=== PATIENT | female | born 1950 | race Caucasian/White ===

== ENCOUNTER 2021-06-29 15:21 | Emergency (ER) | payer MEDICARE ==
--- NOTE | 2021-06-29 15:40 | EDM.PDOC ---
ED HPI GENERAL MEDICAL PROBLEM - General Chief Complaint: Respiratory Problem Stated Complaint: MEDICAL Time Seen by Provider: 06/29/21 15:30 Source of Information: Reports: Patient History Limitations: Reports: No Limitations - History of Present Illness INITIAL COMMENTS - FREE TEXT/NARRATIVE: 70-year-old female who is undergoing monoclonal antibody therapy for Covid as an outpatient, feels weak, has no appetite, has generalized malaise and insisted on being seen in the emergency room after her therapy. Her vitals are stable, O2 saturations are 92 to 94%, and she is afebrile. 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 Denies: Fever, Chills HEENT: Reports: Throat Pain Respiratory: Reports: Shortness of Breath, Cough GI/Abdominal: Reports: Decreased Appetite. Denies: Nausea, Vomiting Musculoskeletal: Reports: Other (Generalized muscle aches) Neurological: Reports: Headache, Weakness Psychiatric: Reports: No Symptoms ED EXAM, GENERAL - Physical Exam Exam: See Below Exam Limited By: No Limitations General Appearance: Alert, No Apparent Distress Neck: Normal Inspection Respiratory/Chest: No Respiratory Distress, Rhonchi (Few scattered rhonchi and expiratory wheezes bilaterally), Wheezing Cardiovascular: Regular Rate, Rhythm. No: Tachycardia Extremities: Normal Inspection. No: Pedal Edema Neurological: Alert, Oriented Psychiatric: Normal Affect, Normal Mood Skin Exam: Warm, Dry Course - Vital Signs Last Recorded V/S: Last Vital Signs Temp 98.5 F 06/29/21 15:22 Pulse 99 06/29/21 15:22 Resp 18 06/29/21 15:22 BP 135/93 H 06/29/21 15:22 Pulse Ox 92 L 06/29/21 15:22 - Re-Assessments/Exams Free Text/Narrative Re-Assessment/Exam: 06/29/21 17:06 Patient was reassured that no further treatment is needed at this time, she is to rest, get fluids, increase activity as tolerated and return if worsening. Departure - Departure Time of Disposition: 15:49 Disposition: Home, Self-Care 01 Clinical Impression: COVID-19 - Discharge Information Instructions: COVID-19 Referrals: PCP,None [Primary Care Provider] - Forms: ED Department Discharge Care Plan Goals: Rest, fluids, and recheck if you feel you are not getting enough oxygen. There is no treatment for lack of energy, fatigue, poor diet or lack of taste. Sepsis Event Note (ED) - Evaluation Sepsis Screening Result: No Definite Risk - Focused Exam Vital Signs: Vital Signs Temp Pulse Resp BP Pulse Ox 06/29/21 15:22 98.5 F 99 18 135/93 H 92 L
== END 2021-06-29 15:49 | disposition home or self-care (01) ==
LOC: JP.ED 15:21
DX: U07.1 COVID-19 (principal); Z88.8 Allergy status to other drugs, medicaments and biological substances
CPT/HCPCS: 99283

== ENCOUNTER 2021-07-01 08:30 | Inpatient (IN) | payer MEDICARE ==
[2021-07-01] MEDS ORDERED: Sodium Chloride 0.9% 10 ML Syringe FLUSH PRN (08:44)
--- NOTE | 2021-07-01 09:20 | CR ---
CHEST: Portable 07/01/2021 at 9:00 AM CLINICAL HISTORY:Hypoxia COMPARISON:CT 02/26/2021 FINDINGS: Patient has patchy bilateral pneumonic infiltrates. Heart and pulmonary vascularity are normal. There are no effusions There are atherosclerotic changes in the aorta.. Impression: Patchy bilateral pneumonic infiltrates
[2021-07-01] MEDS ORDERED: Dexamethasone 4 MG/ML SDV IVPUSH ONE (09:29)
--- NOTE | 2021-07-01 09:29 | EDM.PDOC ---
ED HPI GENERAL MEDICAL PROBLEM - General Chief Complaint: Respiratory Problem Stated Complaint: MEDICAL VIA [facility] Time Seen by Provider: 07/01/21 09:15 Source of Information: Reports: Patient, Old Records, RN History Limitations: Reports: No Limitations - History of Present Illness INITIAL COMMENTS - FREE TEXT/NARRATIVE: 70 yo known Covid + female got her BAM treatments 2 days ago. She was mildly SOB then, worse now. Has not been vaccinated. 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) (none today) - Related Data Allergies Allergy/AdvReac Type Severity Reaction Status Date / Time hydrochlorothiazide Allergy Muscle Verified 07/01/21 08:41 Aches rosuvastatin Allergy Muscle Verified 07/01/21 08:41 Aches simvastatin Allergy Muscle Verified 07/01/21 08:41 Aches Home Meds: Home Meds Amoxicillin 1 tab PO ASDIRECTED 07/01/21 [History] pindoloL [Pindolol] 10 mg PO BID 07/01/21 [History] Past Medical History Cardiovascular History: Reports: Hypertension Gastrointestinal History: Reports: None 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: Psychiatric History: Reports: Anxiety, Depression - Infectious Disease History Infectious Disease History: Reports: Chicken Pox, Measles, Mumps - Past Surgical History Head Surgeries/Procedures: Reports: None Cardiovascular Surgical History: Reports: None GI Surgical History: Reports: Cholecystectomy, Other (See Below) Other GI Surgeries/Procedures: gastric sleeve Social & Family History - Tobacco Use Tobacco Use Status *Q: Never Tobacco User Second Hand Smoke Exposure: No - Caffeine Use Caffeine Use: Reports: Coffee, Soda - Recreational Drug Use Recreational Drug Use: No ED ROS GENERAL - Review of Systems Review Of Systems: See Below Constitutional: Reports: Malaise HEENT: Reports: No Symptoms Respiratory: Reports: Shortness of Breath, Cough Cardiovascular: Reports: No Symptoms GI/Abdominal: Reports: No Symptoms : Reports: No Symptoms Musculoskeletal: Reports: No Symptoms Skin: Reports: No Symptoms Neurological: Reports: No Symptoms ED EXAM, GENERAL - Physical Exam Exam: See Below Exam Limited By: No Limitations General Appearance: Alert, WD/WN, No Apparent Distress Eye Exam: Bilateral Eye: EOMI, Normal Inspection, PERRL Ears: Normal External Exam, Normal Canal, Hearing Grossly Normal, Normal TMs Ear Exam: Bilateral Ear: Auricle Normal, Canal Normal, TM normal Nose: Normal Inspection, No Blood Throat/Mouth: Normal Inspection, Normal Lips, Normal Oropharynx, Normal Voice, No Airway Compromise Head: Atraumatic, Normocephalic Neck: Normal Inspection Respiratory/Chest: No Accessory Muscle Use, Crackles, Other (mild tachypnea) Cardiovascular: Regular Rate, Rhythm, No Edema GI/Abdominal: Normal Bowel Sounds, Soft, Non-Tender, No Distention Back Exam: Normal Inspection. No: CVA Tenderness (R), CVA Tenderness (L) Extremities: Normal Inspection, Normal Range of Motion, Non-Tender, No Pedal Edema Neurological: Alert, Oriented, CN II-XII Intact, Normal Cognition, No Motor/Sensory Deficits Psychiatric: Normal Affect, Normal Mood Skin Exam: Warm, Dry, Intact, Normal Color, No Rash Course - Vital Signs Last Recorded V/S: Last Vital Signs Temp 36.3 C 07/01/21 08:37 Pulse 81 07/01/21 08:37 Resp 18 07/01/21 08:37 BP 152/69 H 07/01/21 08:37 Pulse Ox 93 L 07/01/21 08:37 - Orders/Labs/Meds Orders: Active Orders 24 hr Category Date Time Status Oxygen Therapy Adult [Oxygen Therapy, ED] [RC] Care 07/01/21 09:30 Active ASDIRECTED UA W/MICROSCOPIC [URIN] Stat Lab 07/01/21 08:45 Ordered Sodium Chloride 0.9% [Saline Flush] Med 07/01/21 08:44 Active 10 ml FLUSH ASDIRECTED PRN Saline Lock Insert [OM.PC] Routine Oth 07/01/21 08:44 Ordered Medication Orders Sodium Chloride (Sodium Chloride 0.9% 10 Ml Syringe) 10 ml FLUSH ASDIRECTED PRN PRN Reason: Keep Vein Open Last Admin: 07/01/21 10:04 Dose: 10 ml Documented by: [id number] Labs: Laboratory Tests 07/01/21 07/01/21 07/01/21 Range/Units 09:01 09:01 09:01 WBC 6.6 (4.5-11.0) K/uL RBC 4.64 (3.30-5.50) M/uL Hgb 12.9 (12.0-15.0) g/dL Hct 39.5 (36.0-48.0) % MCV 85 (80-98) fL MCH 28 (27-31) pg MCHC 33 (32-36) % Plt Count 393 (150-400) K/uL D-Dimer, Quantitative 983.77 H (0.0-500.0) ng/mL Sodium 143 (140-148) mmol/L Potassium 3.7 (3.6-5.2) mmol/L Chloride 105 (100-108) mmol/L Carbon Dioxide 27 (21-32) mmol/L Anion Gap 11.0 (5.0-14.0) mmol/L BUN 17 (7-18) mg/dL Creatinine 0.9 (0.6-1.0) mg/dL Est Cr Clr Drug Dosing 51.66 mL/min Estimated GFR (MDRD) > 60 (>60) Glucose 125 H (74-106) mg/dL Calcium 8.6 (8.5-10.1) mg/dL Total Bilirubin (0.2-1.0) mg/dL Direct Bilirubin (0.0-0.2) mg/dL Indirect Bilirubin AST (15-37) U/L ALT (12-78) U/L Alkaline Phosphatase (46-116) U/L C-Reactive Protein (0.0-0.3) mg/dL Total Protein (6.4-8.2) g/dL Albumin (3.4-5.0) g/dL Globulin (2.3-3.5) g/dL Albumin/Globulin Ratio (1.2-2.2) 07/01/21 07/01/21 Range/Units 09:30 11:41 WBC (4.5-11.0) K/uL RBC (3.30-5.50) M/uL Hgb (12.0-15.0) g/dL Hct (36.0-48.0) % MCV (80-98) fL MCH (27-31) pg MCHC (32-36) % Plt Count (150-400) K/uL D-Dimer, Quantitative (0.0-500.0) ng/mL Sodium (140-148) mmol/L Potassium (3.6-5.2) mmol/L Chloride (100-108) mmol/L Carbon Dioxide (21-32) mmol/L Anion Gap (5.0-14.0) mmol/L BUN (7-18) mg/dL Creatinine (0.6-1.0) mg/dL Est Cr Clr Drug Dosing mL/min Estimated GFR (MDRD) (>60) Glucose (74-106) mg/dL Calcium (8.5-10.1) mg/dL Total Bilirubin 0.4 (0.2-1.0) mg/dL Direct Bilirubin 0.12 (0.0-0.2) mg/dL Indirect Bilirubin 0.28 AST 112 H (15-37) U/L ALT 72 (12-78) U/L Alkaline Phosphatase 98 (46-116) U/L C-Reactive Protein 3.46 H (0.0-0.3) mg/dL Total Protein 7.0 (6.4-8.2) g/dL Albumin 2.8 L (3.4-5.0) g/dL Globulin 4.2 H (2.3-3.5) g/dL Albumin/Globulin Ratio 0.7 L (1.2-2.2) Meds: Medications Generic Name Dose Route Start Last Admin Trade Name Frejames PRN Reason Stop Dose Admin Sodium Chloride 10 ml 07/01/21 08:44 07/01/21 10:04 Sodium Chloride 0.9% 10 Ml Syringe FLUSH 10 ml ASDIRECTED PRN Administration Keep Vein Open Discontinued Medications Generic Name Dose Route Start Last Admin Trade Name Mikhail PRN Reason Stop Dose Admin Dexamethasone 6 mg 07/01/21 09:29 07/01/21 10:03 Dexamethasone 4 Mg/Ml Sdv IVPUSH 07/01/21 09:30 6 mg ONETIME ONE Administration Remdesivir 200 mg/ Sodium 250 mls @ 250 mls/hr 07/01/21 09:30 07/01/21 10:07 Chloride IV 07/01/21 10:29 250 mls/hr ONETIME ONE Administration - Radiology Interpretation Free Text/Narrative:: CXR-bilat subtle infiltrates Departure - Departure Time of Disposition: 12:10 Disposition: Admitted As Inpatient 68 Condition: Fair Clinical Impression: COVID-19, Hypoxia - Discharge Information *PRESCRIPTION DRUG MONITORING PROGRAM REVIEWED*: Not Applicable *COPY OF PRESCRIPTION DRUG MONITORING REPORT IN PATIENT GARRETT: Not Applicable Referrals: PCP,None [Primary Care Provider] - Forms: ED Department Discharge Sepsis Event Note (ED) - Evaluation Sepsis Screening Result: No Definite Risk - Focused Exam Vital Signs: Vital Signs Temp Pulse Resp BP Pulse Ox 07/01/21 08:37 36.3 C 81 18 152/69 H 93 L - My Orders Last 24 Hours: My Active Orders 07/01/21 08:44 Sodium Chloride 0.9% [Saline Flush] 10 ml FLUSH ASDIRECTED PRN Saline Lock Insert [OM.PC] Routine 07/01/21 08:45 UA W/MICROSCOPIC [URIN] Stat 07/01/21 09:30 Oxygen Therapy Adult [Oxygen Therapy, ED] [] ASDIRECTED - Assessment/Plan Last 24 Hours: My Active Orders 07/01/21 08:44 Sodium Chloride 0.9% [Saline Flush] 10 ml FLUSH ASDIRECTED PRN Saline Lock Insert [OM.PC] Routine 07/01/21 08:45 UA W/MICROSCOPIC [URIN] Stat 07/01/21 09:30 Oxygen Therapy Adult [Oxygen Therapy, ED] [RC] ASDIRECTED
[2021-07-01] MEDS ORDERED: REMDESIVIR 200 MG in Sodium Chloride 0.9% 250 ML IV ONE (09:30)
--- NOTE | 2021-07-01 12:58 | PCM.HP.2 ---
H&P History of Present Illness - General Date of Service: 07/01/21 Admit Problem/Dx: Admission Diagnosis/Problem Admission Diagnosis/Problem Pneumonia Source of Information: Patient, Provider History Limitations: Reports: No Limitations - History of Present Illness Initial Comments - Free Text/Narative: CC: I'm so sick HPI: Dimple presents to the emergency room today with about 9 days of worsening cough, shortness of breath, weakness, muscle aches, headaches and poor appetite. She thinks her symptoms started about June 22. She was seen in the clinic and tested positive for Covid so monoclonal antibody therapy was ordered and she did complete this on June 29. She did not feel well at the time of the infusion and was seen in the emergency room. She was not hypoxic so she was discharged home. Since that time she has had progression of her symptoms. She did not feel any better after the monoclonal antibodies. She continues to cough and feels short of breath with activity. She has had very little to eat though fluid intake has been acceptable. No complaints of sore throat or sinus congestion. Continues to have diffuse myalgias, weakness and fatigue. She has not previously been vaccinated. Work-up in the emergency room suggested Covid pneumonia with acute respiratory failure and hypoxia. She has mild elevation of D-dimer and CRP. Chest x-ray shows only mild lower lung infiltrates. Currently requiring 3 to 4 L of oxygen. She did receive dexamethasone and remdesivir in the emergency room. She will be admitted for further management. 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: Psychiatric History: Reports: Anxiety, Depression - Infectious Disease History Infectious Disease History: Reports: Chicken Pox, Measles, Mumps - Past Surgical History Head Surgeries/Procedures: Reports: None Cardiovascular Surgical History: Reports: None GI Surgical History: Reports: Cholecystectomy, Other (See Below) Other GI Surgeries/Procedures: gastric sleeve Social & Family History - Family History Cardiac: Denies: CAD - Tobacco Use Tobacco Use Status *Q: Never Tobacco User Second Hand Smoke Exposure: No - Caffeine Use Caffeine Use: Reports: Coffee, Soda - Alcohol Use Alcohol Use History: No Alcohol Use in Last Twelve Months: No - Recreational Drug Use Recreational Drug Use: No H&P Review of Systems - Review of Systems: Review Of Systems: See Below Free Text/Narrative: A complete 12 point review of systems was obtained. Pertinent positives and negatives are noted in the history of present illness. All other systems were reviewed and were negative except as noted. Exam - Exam Exam: See Below - Vital Signs Vital Signs: Last Vital Signs Temp 36.3 C 07/01/21 08:37 Pulse 81 07/01/21 08:37 Resp 18 07/01/21 08:37 BP 152/69 H 07/01/21 08:37 Pulse Ox 93 L 07/01/21 08:37 Weight: 83.915 kg - Exam Quality Assessment: Supplemental Oxygen General: Alert, Oriented, Cooperative. No: Mild Distress HEENT: Conjunctiva Clear. No: Mucosa Moist & Chicken, Scleral Icterus Neck: Supple, Trachea Midline. No: Lymphadenopathy Lungs: Normal Respiratory Effort, Crackles (few both bases). No: Wheezing Cardiovascular: Regular Rate, Regular Rhythm. No: Systolic Murmur GI/Abdominal Exam: Normal Bowel Sounds, Soft, Non-Tender, No Distention Back Exam: Normal Inspection, Full Range of Motion Extremities: No Pedal Edema. No: Increased Warmth Peripheral Pulses: 2+: Dorsalis Pedis (L), Dorsalis Pedis (R) Skin: Warm, Dry Neuro Extensive - Mental Status: Alert, Oriented x3, Nl Response to Commands Neuro Extensive - Motor, Sensory, Reflexes: No: Dysarthria, Abnormal Motor, Tremor Psychiatric: Alert, Normal Affect - Patient Data Lab Results Last 24 hrs: Laboratory Results - last 24 hr 07/01/21 07/01/21 07/01/21 Range/Units 09:01 09:01 09:01 WBC 6.6 (4.5-11.0) K/uL RBC 4.64 (3.30-5.50) M/uL Hgb 12.9 (12.0-15.0) g/dL Hct 39.5 (36.0-48.0) % MCV 85 (80-98) fL MCH 28 (27-31) pg MCHC 33 (32-36) % Plt Count 393 (150-400) K/uL D-Dimer, Quantitative 983.77 H (0.0-500.0) ng/mL Sodium 143 (140-148) mmol/L Potassium 3.7 (3.6-5.2) mmol/L Chloride 105 (100-108) mmol/L Carbon Dioxide 27 (21-32) mmol/L Anion Gap 11.0 (5.0-14.0) mmol/L BUN 17 (7-18) mg/dL Creatinine 0.9 (0.6-1.0) mg/dL Est Cr Clr Drug Dosing 51.66 mL/min Estimated GFR (MDRD) > 60 (>60) Glucose 125 H (74-106) mg/dL Calcium 8.6 (8.5-10.1) mg/dL Total Bilirubin (0.2-1.0) mg/dL Direct Bilirubin (0.0-0.2) mg/dL Indirect Bilirubin AST (15-37) U/L ALT (12-78) U/L Alkaline Phosphatase (46-116) U/L C-Reactive Protein (0.0-0.3) mg/dL Total Protein (6.4-8.2) g/dL Albumin (3.4-5.0) g/dL Globulin (2.3-3.5) g/dL Albumin/Globulin Ratio (1.2-2.2) 07/01/21 07/01/21 Range/Units 09:30 11:41 WBC (4.5-11.0) K/uL RBC (3.30-5.50) M/uL Hgb (12.0-15.0) g/dL Hct (36.0-48.0) % MCV (80-98) fL MCH (27-31) pg MCHC (32-36) % Plt Count (150-400) K/uL D-Dimer, Quantitative (0.0-500.0) ng/mL Sodium (140-148) mmol/L Potassium (3.6-5.2) mmol/L Chloride (100-108) mmol/L Carbon Dioxide (21-32) mmol/L Anion Gap (5.0-14.0) mmol/L BUN (7-18) mg/dL Creatinine (0.6-1.0) mg/dL Est Cr Clr Drug Dosing mL/min Estimated GFR (MDRD) (>60) Glucose (74-106) mg/dL Calcium (8.5-10.1) mg/dL Total Bilirubin 0.4 (0.2-1.0) mg/dL Direct Bilirubin 0.12 (0.0-0.2) mg/dL Indirect Bilirubin 0.28 AST 112 H (15-37) U/L ALT 72 (12-78) U/L Alkaline Phosphatase 98 (46-116) U/L C-Reactive Protein 3.46 H (0.0-0.3) mg/dL Total Protein 7.0 (6.4-8.2) g/dL Albumin 2.8 L (3.4-5.0) g/dL Globulin 4.2 H (2.3-3.5) g/dL Albumin/Globulin Ratio 0.7 L (1.2-2.2) Result Diagrams: 07/01/21 09:01 07/01/21 09:01 Imaging Impressions Last 24 hrs: CXR-image personally reviewed-there are mild bilateral interstitial changes in the lower portion of the lungs. No obvious mass or effusion. No large infiltrate. Heart size normal. Sepsis Event Note - Evaluation Sepsis Screening Result: No Definite Risk - Focused Exam Vital Signs: Vital Signs Temp Pulse Resp BP Pulse Ox 07/01/21 08:37 36.3 C 81 18 152/69 H 93 L *Q Meaningful Use (ADM) - VTE Risk Assess *Q Each Risk Factor Represents 1 Point: Obesity ( BMI > 25 kg/m2), Serious lung disease including pneumonia Total Score 1 Point Risk Factors: 2 Each Risk Factor Represents 2 Points: Age 60 - 74 Years Total Score 2 Point Risk Factors: 2 Each Risk Factor Represents 3 Points: None Total Score 3 Point Risk Factors: 0 Each Risk Factor Represents 5 Points: None Total Score 5 Point Risk Factors: 0 Venous Thromboembolism Risk Factor Score *Q: 4 - Problem List (1) Pneumonia due to coronavirus disease 2018 SNOMED Code(s): 302881300093217823 ICD Code: U07.1 - COVID-19; J12.82 - PNEUMONIA DUE TO CORONAVIRUS DISEASE 2 019 Status: Acute Current Visit: Yes (2) Acute respiratory failure due to COVID-19 SNOMED Code(s): 546455198 ICD Code: U07.1 - COVID-19; J96.00 - ACUTE RESPIRATORY FAILURE, UNSP W HYPOXIA OR HYPERCAPNIA Status: Acute Current Visit: Yes (3) Obesity (BMI 30.0-34.9) SNOMED Code(s): 331677760283645 ICD Code: E66.9 - OBESITY, UNSPECIFIED Status: Chronic Current Visit: Yes Problem List Initiated/Reviewed/Updated: Yes Orders Last 24hrs: Active Orders 24 hr Category Date Time Status Patient Status Manage Transfer [TRANSFER] Routine ADT 07/01/21 12:51 Ordered Oxygen Therapy Adult [Oxygen Therapy, ED] [RC] Care 07/01/21 09:30 Active ASDIRECTED UA W/MICROSCOPIC [URIN] Stat Lab 07/01/21 08:45 Ordered Sodium Chloride 0.9% [Saline Flush] Med 07/01/21 08:44 Active 10 ml FLUSH ASDIRECTED PRN Saline Lock Insert [OM.PC] Routine Oth 07/01/21 08:44 Ordered Resuscitation Status Routine Resus Stat 07/01/21 12:51 Ordered Medication Orders Sodium Chloride (Sodium Chloride 0.9% 10 Ml Syringe) 10 ml FLUSH ASDIRECTED PRN PRN Reason: Keep Vein Open Last Admin: 07/01/21 10:04 Dose: 10 ml Documented by: WILLI Assessment/Plan Comment:: ASSESSMENT AND PLAN - COVID-19 pneumonia-complicated by acute respiratory failure with hypoxia. Symptomatic on June 22. Previously unvaccinated. Mild elevation of CRP and D-dimer with only minimal changes on chest x-ray. Currently hypoxic. Quite miserable with her symptoms. -Dexamethasone 6 mg x 10 days (day 1) -Remdesivir x5 days -Enoxaparin every 24 hours -Supplement oxygen, wean as able -Symptomatic management of pain and cough -Isolation precautions Maintenance issues - -DVT prophylaxis-enoxaparin -GI prophylaxis-not indicated -Nutrition-regular -Goss catheter-not indicated CODE STATUS -CPR okay, no intubation Admission justification -this patient will be admitted for inpatient services and is medically appropriate meeting medical necessity for inpatient admission as outlined in my documentation. I reasonably expect the patient will require inpatient services that span a period time over 2 midnights. I reasonably expect this patient to be discharged or transferred within 96 hours after admission to the [facility]. Disposition -I anticipate discharge home after the hospital stay Primary care physician -Dr Elvira Mcclain M.D. - Mortality Measure Prognosis:: Good
[2021-07-01] MEDS ORDERED: Ondansetron 4 MG Tab.DIS PO PRN (13:59)
[2021-07-01] MEDS ORDERED: Ondansetron 4 MG/2 ML SDV IV PRN (13:59)
[2021-07-01] MEDS ORDERED: LORazepam 2 MG/ML SDV IVPUSH PRN (13:59)
[2021-07-01] MEDS ORDERED: Magnesium Hydroxide 400 MG/5 ML Susp 30 ML Cup PO PRN (13:59)
[2021-07-01] MEDS: Acetaminophen 325 MG Tab PO PRN ×2 (15:18→21:20)
[2021-07-01] MEDS: LORazepam 0.5 MG Tab PO PRN ×2 (15:19→20:59)
[2021-07-01] MEDS: Enoxaparin 40 MG/0.4 ML Syringe SUBCUT SCH (15:41)
[2021-07-01] MEDS: Benzonatate 100 MG Cap PO PRN (20:59)
[2021-07-01] MEDS: Melatonin 3 MG Tab PO PRN (20:59)
[2021-07-01] MEDS: guaiFENesin/Dextromethorphan 100-10 MG/5 ML Soln 10 ML Cup PO PRN (20:59)
[2021-07-02] MEDS: Benzonatate 100 MG Cap PO PRN ×2 (04:23→12:53)
[2021-07-02] MEDS: LORazepam 0.5 MG Tab PO PRN ×4 (04:23→20:00)
[2021-07-02] MEDS: guaiFENesin/Dextromethorphan 100-10 MG/5 ML Soln 10 ML Cup PO PRN ×2 (04:23→08:47)
[2021-07-02] MEDS ORDERED: Sodium Chloride 0.65% Nasal Spray 45 ML Bottle NAS PRN (07:21)
[2021-07-02] MEDS: REMDESIVIR 100 MG in Sodium Chloride 0.9% 100 ML IV SCH (08:46)
[2021-07-02] MEDS: Dexamethasone 4 MG/ML SDV IVPUSH SCH (08:50)
[2021-07-02] MEDS: Acetaminophen 325 MG Tab PO PRN ×2 (09:06→20:00)
[2021-07-02] MEDS: Enoxaparin 40 MG/0.4 ML Syringe SUBCUT SCH (15:24)
--- NOTE | 2021-07-02 15:27 | PCM.PN ---
- General Info Date of Service: 07/02/21 Subjective Update: No acute events overnight. Requiring slightly more oxygen today at 6 to 7 L. Clinically feeling better. Appetite and energy are better but still not very good compared to baseline. No fevers. No nausea or diarrhea. Aches and pains have improved. Vital signs otherwise stable. - Review of Systems General: Reports: Weakness, Fatigue Pulmonary: Reports: Shortness of Breath - Patient Data Vitals - Most Recent: Last Vital Signs Temp 35.9 C L 07/02/21 15:21 Pulse 96 07/02/21 15: Resp 22 H 07/02/21 15: BP 168/71 H 07/02/21 15:21 Pulse Ox 90 L 07/02/21 15:21 Weight - Most Recent: 85.729 kg I&O - Last 24 Hours: Intake & Output 07/02/21 07/02/21 07/02/21 06:59 14:59 22:59 Output Total 600 300 Balance -600 -300 Lab Results Last 24 Hours: Laboratory Results - last 24 hr 07/01/21 07/02/21 Range/Units 08:45 05:18 Sodium 141 (140-148) mmol/L Potassium 3.7 (3.6-5.2) mmol/L Chloride 105 (100-108) mmol/L Carbon Dioxide 23 (21-32) mmol/L Anion Gap 13.4 (5.0-14.0) mmol/L BUN 19 H (7-18) mg/dL Creatinine 0.8 (0.6-1.0) mg/dL Est Cr Clr Drug Dosing 58.12 mL/min Estimated GFR (MDRD) > 60 (>60) Glucose 154 H (74-106) mg/dL Calcium 8.6 (8.5-10.1) mg/dL Total Bilirubin 0.3 (0.2-1.0) mg/dL AST 68 H (15-37) U/L ALT 59 (12-78) U/L Alkaline Phosphatase 89 (46-116) U/L Total Protein 6.4 (6.4-8.2) g/dL Albumin 2.6 L (3.4-5.0) g/dL Globulin 3.8 H (2.3-3.5) g/dL Albumin/Globulin Ratio 0.7 L (1.2-2.2) Urine Color Yellow (YELLOW) Urine Appearance Slightly cloudy A (CLEAR) Urine pH 5.5 (5.0-8.0) Ur Specific [place] >= 1.030 (1.008-1.030) Urine Protein >=300 H (NEGATIVE) mg/dL Urine Glucose (UA) Negative (NEGATIVE) mg/dL Urine Ketones >=160 H (NEGATIVE) mg/dL Urine Occult Blood Trace-intact H (NEGATIVE) Urine Nitrite Negative (NEGATIVE) Urine Bilirubin Negative (NEGATIVE) Urine Urobilinogen 0.2 (0.2-1.0) EU/dL Ur Leukocyte Esterase Negative (NEGATIVE) Urine RBC 0-5 (0-5) Urine WBC 0-5 (0-5) Ur Epithelial Cells Rare Amorphous Sediment Not seen Urine Bacteria Few Urine Mucus Rare Med Orders - Current: Current Medications Acetaminophen (Acetaminophen 325 Mg Tab) 650 mg PO Q4H PRN PRN Reason: Pain (Mild 1-3)/fever Last Admin: 07/02/21 09:06 Dose: 650 mg Documented by: Benzonatate (Benzonatate 100 Mg Cap) 100 mg PO TID PRN PRN Reason: Cough Last Admin: 07/02/21 12:53 Dose: 100 mg Documented by: Dexamethasone (Dexamethasone 4 Mg/Ml Sdv) 6 mg IVPUSH Q24H [facility] Stop: 07/10/21 09:01 Last Admin: 07/02/21 08:50 Dose: 6 mg Documented by: Enoxaparin Sodium (Enoxaparin 40 Mg/0.4 Ml Syringe) 40 mg SUBCUT Q24H [facility] Last Admin: 07/02/21 15:24 Dose: 40 mg Documented by: Guaifenesin/Dextromethorphan (Guaifenesin/Dextromethorphan 100-10 Mg/5 Ml Soln 10 Ml Cup) 10 ml PO Q4H PRN PRN Reason: Cough Last Admin: 07/02/21 08:47 Dose: 10 ml Documented by: Remdesivir 100 mg/ Sodium (Chloride) 100 mls @ 100 mls/hr IV Q24H [facility] Stop: 07/05/21 09:59 Last Admin: 07/02/21 08:46 Dose: 100 mls/hr Documented by: Lorazepam (Lorazepam 2 Mg/Ml Sdv) 0.5 mg IVPUSH Q4H PRN PRN Reason: Nausea/Vomiting Lorazepam (Lorazepam 0.5 Mg Tab) 0.5 mg PO Q4H PRN PRN Reason: Anxiety/sleep Last Admin: 07/02/21 12:53 Dose: 0.5 mg Documented by: Magnesium Hydroxide (Magnesium Hydroxide 400 Mg/5 Ml Susp 30 Ml Cup) 30 ml PO Q12H PRN PRN Reason: Constipation Melatonin (Melatonin 3 Mg Tab) 9 mg PO BEDTIME PRN PRN Reason: Sleep Last Admin: 07/01/21 20:59 Dose: 9 mg Documented by: Ondansetron HCl (Ondansetron 4 Mg/2 Ml Sdv) 4 mg IV Q6H PRN PRN Reason: Nausea/Vomiting Ondansetron HCl (Ondansetron 4 Mg Tab.Dis) 4 mg PO Q6H PRN PRN Reason: Nausea able to take PO Senna/Docusate Sodium (Docusate Sodium/Sennosides 50-8.6 Mg Tab) 1 tab PO BID PRN PRN Reason: Constipation Sodium Chloride (Sodium Chloride 0.9% 10 Ml Syringe) 10 ml FLUSH ASDIRECTED PRN PRN Reason: Keep Vein Open Last Admin: 07/01/21 10:04 Dose: 10 ml Documented by: Sodium Chloride (Sodium Chloride 0.65% Nasal [place] 45 Ml Bottle) 1 ml STACEY Q2H PRN PRN Reason: Dryness Last Admin: 07/02/21 12:52 Dose: 2 spr Documented by: Discontinued Medications Dexamethasone (Dexamethasone 4 Mg/Ml Sdv) 6 mg IVPUSH ONETIME ONE Stop: 07/01/21 09:30 Last Admin: 07/01/21 10:03 Dose: 6 mg Documented by: Remdesivir 200 mg/ Sodium (Chloride) 250 mls @ 250 mls/hr IV ONETIME ONE Stop: 07/01/21 10:29 Last Admin: 07/01/21 10:07 Dose: 250 mls/hr Documented by: - Exam Quality Assessment: Supplemental Oxygen General: Alert, Oriented, Cooperative, No Acute Distress Lungs: Clear to Auscultation, Normal Respiratory Effort Cardiovascular: Regular Rate, Regular Rhythm GI/Abdominal Exam: Soft, No Distention Extremities: No Pedal Edema. No: Increased Warmth Psy/Mental Status: Alert, Normal Affect - Patient Data Lab Results Last 24 hrs: Laboratory Results - last 24 hr 07/01/21 07/02/21 Range/Units 08:45 05:18 Sodium 141 (140-148) mmol/L Potassium 3.7 (3.6-5.2) mmol/L Chloride 105 (100-108) mmol/L Carbon Dioxide 23 (21-32) mmol/L Anion Gap 13.4 (5.0-14.0) mmol/L BUN 19 H (7-18) mg/dL Creatinine 0.8 (0.6-1.0) mg/dL Est Cr Clr Drug Dosing 58.12 mL/min Estimated GFR (MDRD) > 60 (>60) Glucose 154 H (74-106) mg/dL Calcium 8.6 (8.5-10.1) mg/dL Total Bilirubin 0.3 (0.2-1.0) mg/dL AST 68 H (15-37) U/L ALT 59 (12-78) U/L Alkaline Phosphatase 89 (46-116) U/L Total Protein 6.4 (6.4-8.2) g/dL Albumin 2.6 L (3.4-5.0) g/dL Globulin 3.8 H (2.3-3.5) g/dL Albumin/Globulin Ratio 0.7 L (1.2-2.2) Urine Color Yellow (YELLOW) Urine Appearance Slightly cloudy A (CLEAR) Urine pH 5.5 (5.0-8.0) Ur Specific [place] >= 1.030 (1.008-1.030) Urine Protein >=300 H (NEGATIVE) mg/dL Urine Glucose (UA) Negative (NEGATIVE) mg/dL Urine Ketones >=160 H (NEGATIVE) mg/dL Urine Occult Blood Trace-intact H (NEGATIVE) Urine Nitrite Negative (NEGATIVE) Urine Bilirubin Negative (NEGATIVE) Urine Urobilinogen 0.2 (0.2-1.0) EU/dL Ur Leukocyte Esterase Negative (NEGATIVE) Urine RBC 0-5 (0-5) Urine WBC 0-5 (0-5) Ur Epithelial Cells Rare Amorphous Sediment Not seen Urine Bacteria Few Urine Mucus Rare Result Diagrams: 07/01/21 09:01 07/02/21 05:18 Sepsis Event Note - Evaluation Sepsis Screening Result: Sepsis Risk - Focused Exam Vital Signs: Vital Signs Temp Temp Pulse Resp BP Pulse Ox 07/02/21 15:21 35.9 C L 96 22 H 168/71 H 90 L 07/02/21 11:25 36.1 C 90 18 146/70 H 92 L 07/02/21 08:30 90 L 07/02/21 08:08 36.1 C 94 20 151/73 H 91 L 07/02/21 07:17 35.5 C L 96 20 139/67 88 L 07/02/21 04:34 98 24 H 92 L - Problem List & Annotations (1) Pneumonia due to coronavirus disease 2018 SNOMED Code(s): 247394649462695167 Code(s): U07.1 - COVID-19; J12.82 - PNEUMONIA DUE TO CORONAVIRUS DISEASE 2018 Status: Acute Current Visit: Yes (2) Acute respiratory failure due to COVID-19 SNOMED Code(s): 982337347 Code(s): U07.1 - COVID-19; J96.00 - ACUTE RESPIRATORY FAILURE, UNSP W HYPOXIA OR HYPERCAPNIA Status: Acute Current Visit: Yes (3) Obesity (BMI 30.0-34.9) SNOMED Code(s): 481985129449460 Code(s): E66.9 - OBESITY, UNSPECIFIED Status: Chronic Current Visit: Yes - Problem List Review Problem List Initiated/Reviewed/Updated: Yes - My Orders Last 24 Hours: My Active Orders 07/01/21 15:09 Isolation [COMM] Routine 07/01/21 Dinner Regular Diet [DIET] 07/02/21 07:21 Sodium Chloride 0.65% [[place] Nasal [place]] 1 ml STACEY Q2H PRN 07/02/21 09:00 Remdesivir 100 mg Sodium Chloride 0.9% [Normal Saline] 100 ml IV Q24H dexAMETHasone [Decadron] 6 mg IVPUSH Q24H 07/03/21 05:00 COMPREHENSIVE METABOLIC PN,CMP [CHEM] Timed CRP [C-REACTIVE PROTEIN] [CHEM] Timed D-DIMER QUANTITATIVE [COAG] Timed - Plan Plan:: ASSESSMENT AND PLAN - COVID-19 pneumonia-complicated by acute respiratory failure with hypoxia. Symptomatic on June 22. Previously unvaccinated. Feeling better today. Requiring slightly more oxygen today but otherwise doing better. -Dexamethasone 6 mg x 10 days (day 2) -Remdesivir x5 days -Enoxaparin every 24 hours -Supplement oxygen, wean as able -Symptomatic management of pain and cough -Isolation precautions Maintenance issues - -DVT prophylaxis-enoxaparin -GI prophylaxis-not indicated -Nutrition-regular -Goss catheter-not indicated CODE STATUS -CPR okay, no intubation Disposition -I anticipate discharge home after the hospital stay Primary care physician -Dr Elvira Mcclain M.D.
[2021-07-02] MEDS: Melatonin 3 MG Tab PO PRN (20:00)
[2021-07-02] MEDS: Pindolol 10 MG Tab PO SCH (20:01)
[2021-07-03] MEDS: Benzonatate 100 MG Cap PO PRN ×3 (02:41→20:15)
[2021-07-03] MEDS: Pindolol 10 MG Tab PO SCH ×2 (09:09→20:16)
[2021-07-03] MEDS: Dexamethasone 4 MG/ML SDV IVPUSH SCH (09:10)
[2021-07-03] MEDS: REMDESIVIR 100 MG in Sodium Chloride 0.9% 100 ML IV SCH (09:10)
[2021-07-03] MEDS: Acetaminophen 325 MG Tab PO PRN ×2 (09:23→17:50)
[2021-07-03] MEDS: Enoxaparin 40 MG/0.4 ML Syringe SUBCUT SCH (13:37)
--- NOTE | 2021-07-03 15:47 | PCM.PN ---
- General Info Date of Service: 07/03/21 Subjective Update: There were no acute events overnight. No fevers. Vital signs stable. Supplemental oxygen had increased up to 6 but has now decreased down to 4. Symptomatically she is feeling better with a slight improvement in her energy and appetite. Strength is a little better. Cough is intermittent and loose but not productive. No significant dyspnea but she has not been very active. CRP and D-dimer have improved quite a bit since admission. Functional Status: Reports: Tolerating Diet - Review of Systems General: Reports: Weakness. Denies: Fever - Patient Data Vitals - Most Recent: Last Vital Signs Temp 35.4 C L 07/03/21 14:51 Pulse 90 07/03/21 14:51 Resp 20 07/03/21 14:51 BP 142/56 H 07/03/21 14:51 Pulse Ox 93 L 07/03/21 14:51 Weight - Most Recent: 85.729 kg I&O - Last 24 Hours: Intake & Output 07/03/21 07/03/21 07/03/21 06:59 14:59 22:59 Intake Total 400 Balance 400 Lab Results Last 24 Hours: Laboratory Results - last 24 hr 07/03/21 07/03/21 Range/Units 05:02 05:02 D-Dimer, Quantitative 666.82 H (0.0-500.0) ng/mL Sodium 143 (140-148) mmol/L Potassium 3.8 (3.6-5.2) mmol/L Chloride 107 (100-108) mmol/L Carbon Dioxide 26 (21-32) mmol/L Anion Gap 9.8 (5.0-14.0) mmol/L BUN 21 H (7-18) mg/dL Creatinine 0.9 (0.6-1.0) mg/dL Est Cr Clr Drug Dosing 51.66 mL/min Estimated GFR (MDRD) > 60 (>60) Glucose 154 H (74-106) mg/dL Calcium 8.6 (8.5-10.1) mg/dL Total Bilirubin 0.3 (0.2-1.0) mg/dL AST 52 H (15-37) U/L ALT 57 (12-78) U/L Alkaline Phosphatase 84 (46-116) U/L C-Reactive Protein 0.70 H (0.0-0.3) mg/dL Total Protein 6.3 L (6.4-8.2) g/dL Albumin 2.6 L (3.4-5.0) g/dL Globulin 3.7 H (2.3-3.5) g/dL Albumin/Globulin Ratio 0.7 L (1.2-2.2) Med Orders - Current: Current Medications Acetaminophen (Acetaminophen 325 Mg Tab) 650 mg PO Q4H PRN PRN Reason: Pain (Mild 1-3)/fever Last Admin: 07/03/21 09:23 Dose: 650 mg Documented by: Benzonatate (Benzonatate 100 Mg Cap) 100 mg PO TID PRN PRN Reason: Cough Last Admin: 07/03/21 09:23 Dose: 100 mg Documented by: Dexamethasone (Dexamethasone 4 Mg/Ml Sdv) 6 mg IVPUSH Q24H [facility] Stop: 07/10/21 09:01 Last Admin: 07/03/21 09:10 Dose: 6 mg Documented by: Enoxaparin Sodium (Enoxaparin 40 Mg/0.4 Ml Syringe) 40 mg SUBCUT Q24H [facility] Last Admin: 07/03/21 13:37 Dose: 40 mg Documented by: Guaifenesin/Dextromethorphan (Guaifenesin/Dextromethorphan 100-10 Mg/5 Ml Soln 10 Ml Cup) 10 ml PO Q4H PRN PRN Reason: Cough Last Admin: 07/02/21 08:47 Dose: 10 ml Documented by: Remdesivir 100 mg/ Sodium (Chloride) 100 mls @ 100 mls/hr IV Q24H [facility] Stop: 07/05/21 09:59 Last Admin: 07/03/21 09:10 Dose: 100 mls/hr Documented by: Lorazepam (Lorazepam 2 Mg/Ml Sdv) 0.5 mg IVPUSH Q4H PRN PRN Reason: Nausea/Vomiting Lorazepam (Lorazepam 0.5 Mg Tab) 0.5 mg PO Q4H PRN PRN Reason: Anxiety/sleep Last Admin: 07/02/21 20:00 Dose: 0.5 mg Documented by: Magnesium Hydroxide (Magnesium Hydroxide 400 Mg/5 Ml Susp 30 Ml Cup) 30 ml PO Q12H PRN PRN Reason: Constipation Melatonin (Melatonin 3 Mg Tab) 9 mg PO BEDTIME PRN PRN Reason: Sleep Last Admin: 07/02/21 20:00 Dose: 9 mg Documented by: Ondansetron HCl (Ondansetron 4 Mg/2 Ml Sdv) 4 mg IV Q6H PRN PRN Reason: Nausea/Vomiting Ondansetron HCl (Ondansetron 4 Mg Tab.Dis) 4 mg PO Q6H PRN PRN Reason: Nausea able to take PO Pindolol (Pindolol 10 Mg Tab) 10 mg PO BID [facility] Last Admin: 07/03/21 09:09 Dose: 10 mg Documented by: Senna/Docusate Sodium (Docusate Sodium/Sennosides 50-8.6 Mg Tab) 1 tab PO BID PRN PRN Reason: Constipation Sodium Chloride (Sodium Chloride 0.9% 10 Ml Syringe) 10 ml FLUSH ASDIRECTED PRN PRN Reason: Keep Vein Open Last Admin: 07/01/21 10:04 Dose: 10 ml Documented by: Sodium Chloride (Sodium Chloride 0.65% Nasal [place] 45 Ml Bottle) 1 ml STACEY Q2H PRN PRN Reason: Dryness Last Admin: 07/02/21 12:52 Dose: 2 spr Documented by: Discontinued Medications Dexamethasone (Dexamethasone 4 Mg/Ml Sdv) 6 mg IVPUSH ONETIME ONE Stop: 07/01/21 09:30 Last Admin: 07/01/21 10:03 Dose: 6 mg Documented by: Remdesivir 200 mg/ Sodium (Chloride) 250 mls @ 250 mls/hr IV ONETIME ONE Stop: 07/01/21 10:29 Last Admin: 07/01/21 10:07 Dose: 250 mls/hr Documented by: - Exam Quality Assessment: Supplemental Oxygen General: Alert, Oriented, Cooperative, No Acute Distress Lungs: Normal Respiratory Effort. No: Wheezing GI/Abdominal Exam: Soft, No Distention Skin: Warm, Dry Psy/Mental Status: Alert, Normal Affect - Patient Data Lab Results Last 24 hrs: Laboratory Results - last 24 hr 07/03/21 07/03/21 Range/Units 05:02 05:02 D-Dimer, Quantitative 666.82 H (0.0-500.0) ng/mL Sodium 143 (140-148) mmol/L Potassium 3.8 (3.6-5.2) mmol/L Chloride 107 (100-108) mmol/L Carbon Dioxide 26 (21-32) mmol/L Anion Gap 9.8 (5.0-14.0) mmol/L BUN 21 H (7-18) mg/dL Creatinine 0.9 (0.6-1.0) mg/dL Est Cr Clr Drug Dosing 51.66 mL/min Estimated GFR (MDRD) > 60 (>60) Glucose 154 H (74-106) mg/dL Calcium 8.6 (8.5-10.1) mg/dL Total Bilirubin 0.3 (0.2-1.0) mg/dL AST 52 H (15-37) U/L ALT 57 (12-78) U/L Alkaline Phosphatase 84 (46-116) U/L C-Reactive Protein 0.70 H (0.0-0.3) mg/dL Total Protein 6.3 L (6.4-8.2) g/dL Albumin 2.6 L (3.4-5.0) g/dL Globulin 3.7 H (2.3-3.5) g/dL Albumin/Globulin Ratio 0.7 L (1.2-2.2) Result Diagrams: 07/01/21 09:01 07/03/21 05:02 Sepsis Event Note - Evaluation Sepsis Screening Result: Sepsis Risk - Focused Exam Vital Signs: Vital Signs Temp Pulse Pulse Resp BP BP Pulse Ox 07/03/21 14:51 35.4 C L 90 20 142/56 H 93 L 07/03/21 11:00 35.5 C L 88 18 174/65 H 90 L 07/03/21 10:46 96 07/03/21 09:43 96 07/03/21 09:41 96 07/03/21 09:09 90 138/74 07/03/21 07:28 35.5 C L 90 22 H 138/74 92 L - Problem List & Annotations (1) Pneumonia due to coronavirus disease 2019 SNOMED Code(s): 142567606326353059 Code(s): U07.1 - COVID-19; J12.82 - PNEUMONIA DUE TO CORONAVIRUS DISEASE 2019 Status: Acute Current Visit: Yes (2) Acute respiratory failure due to COVID-19 SNOMED Code(s): 531887114 Code(s): U07.1 - COVID-19; J96.00 - ACUTE RESPIRATORY FAILURE, UNSP W HYPOXIA OR HYPERCAPNIA Status: Acute Current Visit: Yes (3) Obesity (BMI 30.0-34.9) SNOMED Code(s): 437532152773094 Code(s): E66.9 - OBESITY, UNSPECIFIED Status: Chronic Current Visit: Yes - Problem List Review Problem List Initiated/Reviewed/Updated: Yes - My Orders Last 24 Hours: My Active Orders 07/02/21 21:00 pindoloL 10 mg PO BID 07/04/21 05:00 COMPREHENSIVE METABOLIC PN,CMP [CHEM] Timed - Plan Plan:: ASSESSMENT AND PLAN - COVID-19 pneumonia-complicated by acute respiratory failure with hypoxia. Symptomatic on June 22. Previously unvaccinated. Steadily improving. Supplemental oxygen requirement is decreasing. D-dimer and CRP are improving. -Dexamethasone 6 mg x 10 days (day 3) -Remdesivir x5 days -Enoxaparin every 24 hours -Supplement oxygen, wean as able -Symptomatic management of pain and cough -Isolation precautions Maintenance issues - -DVT prophylaxis-enoxaparin -GI prophylaxis-not indicated -Nutrition-regular -Goss catheter-not indicated CODE STATUS -CPR okay, no intubation Disposition -I anticipate discharge home after the hospital stay Primary care physician -Dr Elvira Mcclain M.D.
[2021-07-03] MEDS: guaiFENesin/Dextromethorphan 100-10 MG/5 ML Soln 10 ML Cup PO PRN (17:50)
[2021-07-03] MEDS: LORazepam 0.5 MG Tab PO PRN (20:15)
[2021-07-03] MEDS: Melatonin 3 MG Tab PO PRN (20:16)
[2021-07-04] MEDS: Acetaminophen 325 MG Tab PO PRN ×2 (07:40→18:14)
[2021-07-04] MEDS ORDERED: Potassium Chloride 20 MEQ Tab.ER PO ONE (08:30)
[2021-07-04] MEDS: Pindolol 10 MG Tab PO SCH ×2 (09:35→20:58)
[2021-07-04] MEDS: REMDESIVIR 100 MG in Sodium Chloride 0.9% 100 ML IV SCH (09:35)
[2021-07-04] MEDS: Dexamethasone 4 MG/ML SDV IVPUSH SCH (09:35)
[2021-07-04] MEDS ORDERED: Lidocaine 2% 30 ML, Alum Hydrox/Mag Hydrox/Simeth 30 ML, diphenhydrAMINE 75 MG PO PRN ×3 (10:03)
[2021-07-04] MEDS ORDERED: ALUM HYDROX PO PRN ×3 (10:17)
[2021-07-04] MEDS ORDERED: MAG HYDROX PO PRN ×3 (10:17)
[2021-07-04] MEDS ORDERED: DIPHENHYDRAMINE PO PRN ×3 (10:17)
[2021-07-04] MEDS ORDERED: LIDOCAINE 2% PO PRN ×3 (10:17)
[2021-07-04] MEDS ORDERED: SIMETH PO PRN ×3 (10:17)
--- NOTE | 2021-07-04 13:22 | PCM.PN ---
- General Info Date of Service: 07/04/21 Subjective Update: No acute events overnight. Down to 5 L of oxygen today. Feels more energetic and less short of breath today though minimally so. Appetite is slightly better today. Slept fairly well last night. Cough is improving and remains intermittent. No fevers. Tolerating steroids and remdesivir. Functional Status: Reports: Pain Controlled, Tolerating Diet - Review of Systems General: Reports: Weakness Pulmonary: Reports: Shortness of Breath - Patient Data Vitals - Most Recent: Last Vital Signs Temp 35.4 C L 07/04/21 10:51 Pulse 73 07/04/21 10:51 Resp 28 H 07/04/21 10:51 BP 145/60 H 07/04/21 10:51 Pulse Ox 97 07/04/21 10:51 Weight - Most Recent: 85.729 kg I&O - Last 24 Hours: Intake & Output 07/03/21 07/04/21 07/04/21 22:59 06:59 14:59 Intake Total 400 100 Balance 400 100 Lab Results Last 24 Hours: Laboratory Results - last 24 hr 07/04/21 Range/Units 04:50 Sodium 143 (140-148) mmol/L Potassium 3.5 L (3.6-5.2) mmol/L Chloride 107 (100-108) mmol/L Carbon Dioxide 26 (21-32) mmol/L Anion Gap 13.5 (5.0-14.0) mmol/L BUN 24 H (7-18) mg/dL Creatinine 0.9 (0.6-1.0) mg/dL Est Cr Clr Drug Dosing 51.66 mL/min Estimated GFR (MDRD) > 60 (>60) Glucose 145 H (74-106) mg/dL Calcium 8.4 L (8.5-10.1) mg/dL Total Bilirubin 0.3 (0.2-1.0) mg/dL AST 34 (15-37) U/L ALT 48 (12-78) U/L Alkaline Phosphatase 76 (46-116) U/L Total Protein 6.0 L (6.4-8.2) g/dL Albumin 2.5 L (3.4-5.0) g/dL Globulin 3.5 (2.3-3.5) g/dL Albumin/Globulin Ratio 0.7 L (1.2-2.2) Med Orders - Current: Current Medications Acetaminophen (Acetaminophen 325 Mg Tab) 650 mg PO Q4H PRN PRN Reason: Pain (Mild 1-3)/fever Last Admin: 07/04/21 07:40 Dose: 650 mg Documented by: Benzonatate (Benzonatate 100 Mg Cap) 100 mg PO TID PRN PRN Reason: Cough Last Admin: 07/03/21 20:15 Dose: 100 mg Documented by: Al Hydroxide/Mg Hydroxide 30 ml/ Diphenhydramine HCl 75 mg/Lidocaine HCl 30 ml 0 ml PO Q4H PRN PRN Reason: MOUTH CARE Dexamethasone (Dexamethasone 4 Mg/Ml Sdv) 6 mg IVPUSH Q24H [facility] Stop: 07/10/21 09:01 Last Admin: 07/04/21 09:35 Dose: 6 mg Documented by: Enoxaparin Sodium (Enoxaparin 40 Mg/0.4 Ml Syringe) 40 mg SUBCUT Q24H [facility] Last Admin: 07/03/21 13:37 Dose: 40 mg Documented by: Guaifenesin/Dextromethorphan (Guaifenesin/Dextromethorphan 100-10 Mg/5 Ml Soln 10 Ml Cup) 10 ml PO Q4H PRN PRN Reason: Cough Last Admin: 07/03/21 17:50 Dose: 10 ml Documented by: Remdesivir 100 mg/ Sodium (Chloride) 100 mls @ 100 mls/hr IV Q24H [facility] Stop: 07/05/21 09:59 Last Admin: 07/04/21 09:35 Dose: 100 mls/hr Documented by: Lorazepam (Lorazepam 2 Mg/Ml Sdv) 0.5 mg IVPUSH Q4H PRN PRN Reason: Nausea/Vomiting Lorazepam (Lorazepam 0.5 Mg Tab) 0.5 mg PO Q4H PRN PRN Reason: Anxiety/sleep Last Admin: 07/03/21 20:15 Dose: 0.5 mg Documented by: Magnesium Hydroxide (Magnesium Hydroxide 400 Mg/5 Ml Susp 30 Ml Cup) 30 ml PO Q12H PRN PRN Reason: Constipation Melatonin (Melatonin 3 Mg Tab) 9 mg PO BEDTIME PRN PRN Reason: Sleep Last Admin: 07/03/21 20:16 Dose: 9 mg Documented by: Ondansetron HCl (Ondansetron 4 Mg/2 Ml Sdv) 4 mg IV Q6H PRN PRN Reason: Nausea/Vomiting Ondansetron HCl (Ondansetron 4 Mg Tab.Dis) 4 mg PO Q6H PRN PRN Reason: Nausea able to take PO Pindolol (Pindolol 10 Mg Tab) 10 mg PO BID [facility] Last Admin: 07/04/21 09:35 Dose: 10 mg Documented by: Senna/Docusate Sodium (Docusate Sodium/Sennosides 50-8.6 Mg Tab) 1 tab PO BID PRN PRN Reason: Constipation Sodium Chloride (Sodium Chloride 0.9% 10 Ml Syringe) 10 ml FLUSH ASDIRECTED PRN PRN Reason: Keep Vein Open Last Admin: 07/01/21 10:04 Dose: 10 ml Documented by: Sodium Chloride (Sodium Chloride 0.65% Nasal [place] 45 Ml Bottle) 1 ml STACEY Q2H PRN PRN Reason: Dryness Last Admin: 07/02/21 12:52 Dose: 2 spr Documented by: Discontinued Medications Dexamethasone (Dexamethasone 4 Mg/Ml Sdv) 6 mg IVPUSH ONETIME ONE Stop: 07/01/21 09:30 Last Admin: 07/01/21 10:03 Dose: 6 mg Documented by: Remdesivir 200 mg/ Sodium (Chloride) 250 mls @ 250 mls/hr IV ONETIME ONE Stop: 07/01/21 10:29 Last Admin: 07/01/21 10:07 Dose: 250 mls/hr Documented by: Potassium Chloride (Potassium Chloride 20 Meq Tab.Er) 40 meq PO ONETIME ONE Stop: 07/04/21 08:31 Last Admin: 07/04/21 09:35 Dose: 40 meq Documented by: - Exam Quality Assessment: Supplemental Oxygen General: Alert, Oriented, Cooperative, No Acute Distress Lungs: Normal Respiratory Effort. No: Wheezing GI/Abdominal Exam: Soft, No Distention Extremities: No Pedal Edema Psy/Mental Status: Alert, Normal Affect - Patient Data Lab Results Last 24 hrs: Laboratory Results - last 24 hr 07/04/21 Range/Units 04:50 Sodium 143 (140-148) mmol/L Potassium 3.5 L (3.6-5.2) mmol/L Chloride 107 (100-108) mmol/L Carbon Dioxide 26 (21-32) mmol/L Anion Gap 13.5 (5.0-14.0) mmol/L BUN 24 H (7-18) mg/dL Creatinine 0.9 (0.6-1.0) mg/dL Est Cr Clr Drug Dosing 51.66 mL/min Estimated GFR (MDRD) > 60 (>60) Glucose 145 H (74-106) mg/dL Calcium 8.4 L (8.5-10.1) mg/dL Total Bilirubin 0.3 (0.2-1.0) mg/dL AST 34 (15-37) U/L ALT 48 (12-78) U/L Alkaline Phosphatase 76 (46-116) U/L Total Protein 6.0 L (6.4-8.2) g/dL Albumin 2.5 L (3.4-5.0) g/dL Globulin 3.5 (2.3-3.5) g/dL Albumin/Globulin Ratio 0.7 L (1.2-2.2) Result Diagrams: 07/01/21 09:01 07/04/21 04:50 Sepsis Event Note - Evaluation Sepsis Screening Result: No Definite Risk - Focused Exam Vital Signs: Vital Signs Temp Pulse Pulse Resp BP BP Pulse Ox 07/04/21 10:51 35.4 C L 73 28 H 145/60 H 97 07/04/21 09:35 89 140/72 07/04/21 09:00 92 L 07/04/21 07:27 35.6 C L 89 20 140/68 90 L 07/04/21 07:00 07/04/21 02:03 79 89 L 07/04/21 02:01 145/61 H Pulse Ox 07/04/21 10:51 07/04/21 09:35 07/04/21 09:00 07/04/21 07:27 07/04/21 07:00 95 07/04/21 02:03 07/04/21 02:01 - Problem List & Annotations (1) Pneumonia due to coronavirus disease 2018 SNOMED Code(s): 757648440032492217 Code(s): U07.1 - COVID-19; J12.82 - PNEUMONIA DUE TO CORONAVIRUS DISEASE 2019 Status: Acute Current Visit: Yes (2) Acute respiratory failure due to COVID-19 SNOMED Code(s): 812958130 Code(s): U07.1 - COVID-19; J96.00 - ACUTE RESPIRATORY FAILURE, UNSP W HYPOXIA OR HYPERCAPNIA Status: Acute Current Visit: Yes (3) Obesity (BMI 30.0-34.9) SNOMED Code(s): 981865923629540 Code(s): E66.9 - OBESITY, UNSPECIFIED Status: Chronic Current Visit: Yes - Problem List Review Problem List Initiated/Reviewed/Updated: Yes - My Orders Last 24 Hours: My Active Orders 07/04/21 10:17 Alum Hydrox/Mag Hydrox/Simeth [Mag-Al Plus] 30 ml diphenhydrAMINE [Benadryl] 75 mg Lidocaine 2% [Xylocaine 2% Viscous] 30 ml PO Q4H 07/05/21 05:00 CBC W/O DIFF,HEMOGRAM [HEME] Timed (1) COMPREHENSIVE METABOLIC PN,CMP [CHEM] Timed CRP [C-REACTIVE PROTEIN] [CHEM] Timed D-DIMER QUANTITATIVE [COAG] Timed - Plan Plan:: ASSESSMENT AND PLAN - COVID-19 pneumonia-complicated by acute respiratory failure with hypoxia. Symptomatic on June 22. Previously unvaccinated. Steadily improving. Supplemental oxygen requirement is decreasing and she is down to 5 L today. -Dexamethasone 6 mg x 10 days (day 4) -Remdesivir x5 days -Enoxaparin every 24 hours -Supplement oxygen, wean as able -Symptomatic management of pain and cough -Isolation precautions through 07/07 (15 days) Maintenance issues - -DVT prophylaxis-enoxaparin -GI prophylaxis-not indicated -Nutrition-regular -Goss catheter-not indicated CODE STATUS -CPR okay, no intubation Disposition -I anticipate discharge home after the hospital stay Primary care physician -Dr Elvira Mcclain M.D.
[2021-07-04] MEDS: Enoxaparin 40 MG/0.4 ML Syringe SUBCUT SCH (14:31)
[2021-07-04] MEDS: guaiFENesin/Dextromethorphan 100-10 MG/5 ML Soln 10 ML Cup PO PRN (18:14)
[2021-07-04] MEDS: Melatonin 3 MG Tab PO PRN (20:20)
[2021-07-04] MEDS: Benzonatate 100 MG Cap PO PRN (20:20)
[2021-07-04] MEDS: LORazepam 0.5 MG Tab PO PRN (20:20)
[2021-07-05] MEDS: Acetaminophen 325 MG Tab PO PRN (08:16)
[2021-07-05] MEDS: Benzonatate 100 MG Cap PO PRN ×2 (08:16→20:28)
[2021-07-05] MEDS: Dexamethasone 4 MG/ML SDV IVPUSH SCH (09:07)
[2021-07-05] MEDS: Pindolol 10 MG Tab PO SCH ×2 (09:07→20:27)
[2021-07-05] MEDS: REMDESIVIR 100 MG in Sodium Chloride 0.9% 100 ML IV SCH (09:12)
--- NOTE | 2021-07-05 14:10 | PCM.PN ---
- General Info Date of Service: 07/05/21 Subjective Update: Ms. Garcia has been stable since yesterday, continues to require 5 to 6 L of supplemental oxygen per minute. She feels improved but still very weak and tired, limited activity. Short of breath with exertion. Functional Status: Reports: Urinating - Review of Systems General: Reports: Weakness, Fatigue. Denies: Fever, Chills Pulmonary: Reports: Shortness of Breath, Cough. Denies: Pleuritic Chest Pain, Sputum, Hemoptysis, Wheezing Cardiovascular: Reports: Dyspnea on Exertion. Denies: Chest Pain, Palpitations, Orthopnea, PND, Edema, Lightheadedness Gastrointestinal: Reports: No Symptoms Genitourinary: Reports: No Symptoms - Patient Data Vitals - Most Recent: Last Vital Signs Temp 96.1 F L 07/05/21 11:00 Pulse 87 07/05/21 11:00 Resp 20 07/05/21 07:56 BP 138/55 L 07/05/21 11:00 Pulse Ox 92 L 07/05/21 11:06 Weight - Most Recent: 189 lb I&O - Last 24 Hours: Intake & Output 07/04/21 07/05/21 07/05/21 22:59 06:59 14:59 Intake Total 1040 1040 Balance 1040 1040 Lab Results Last 24 Hours: Laboratory Results - last 24 hr 07/05/21 07/05/21 07/05/21 Range/Units 04:50 04:50 04:50 WBC 13.9 H (4.5-11.0) K/uL RBC 4.25 (3.30-5.50) M/uL Hgb 11.7 L (12.0-15.0) g/dL Hct 36.2 (36.0-48.0) % MCV 85 (80-98) fL MCH 28 (27-31) pg MCHC 32 (32-36) % Plt Count 559 H (150-400) K/uL D-Dimer, Quantitative 598.27 H (0.0-500.0) ng/mL Sodium 143 (140-148) mmol/L Potassium 4.0 (3.6-5.2) mmol/L Chloride 106 (100-108) mmol/L Carbon Dioxide 27 (21-32) mmol/L Anion Gap 10.5 (5.0-14.0) mmol/L BUN 21 H (7-18) mg/dL Creatinine 0.8 (0.6-1.0) mg/dL Est Cr Clr Drug Dosing 58.12 mL/min Estimated GFR (MDRD) > 60 (>60) Glucose 135 H (74-106) mg/dL Calcium 8.3 L (8.5-10.1) mg/dL Total Bilirubin 0.4 (0.2-1.0) mg/dL AST 21 (15-37) U/L ALT 41 (12-78) U/L Alkaline Phosphatase 72 (46-116) U/L C-Reactive Protein 0.63 H (0.0-0.3) mg/dL Total Protein 5.8 L (6.4-8.2) g/dL Albumin 2.4 L (3.4-5.0) g/dL Globulin 3.4 (2.3-3.5) g/dL Albumin/Globulin Ratio 0.7 L (1.2-2.2) Med Orders - Current: Current Medications Acetaminophen (Acetaminophen 325 Mg Tab) 650 mg PO Q4H PRN PRN Reason: Pain (Mild 1-3)/fever Last Admin: 07/05/21 08:16 Dose: 650 mg Documented by: Benzonatate (Benzonatate 100 Mg Cap) 100 mg PO TID PRN PRN Reason: Cough Last Admin: 07/05/21 08:16 Dose: 100 mg Documented by: Al Hydroxide/Mg Hydroxide 30 ml/ Diphenhydramine HCl 75 mg/Lidocaine HCl 30 ml 0 ml PO Q4H PRN PRN Reason: MOUTH CARE Dexamethasone (Dexamethasone 4 Mg/Ml Sdv) 6 mg IVPUSH Q24H [facility] Stop: 07/10/21 09:01 Last Admin: 07/05/21 09:07 Dose: 6 mg Documented by: Enoxaparin Sodium (Enoxaparin 40 Mg/0.4 Ml Syringe) 40 mg SUBCUT Q24H [facility] Last Admin: 07/04/21 14:31 Dose: 40 mg Documented by: Guaifenesin/Dextromethorphan (Guaifenesin/Dextromethorphan 100-10 Mg/5 Ml Soln 10 Ml Cup) 10 ml PO Q4H PRN PRN Reason: Cough Last Admin: 07/04/21 18:14 Dose: 10 ml Documented by: Lorazepam (Lorazepam 2 Mg/Ml Sdv) 0.5 mg IVPUSH Q4H PRN PRN Reason: Nausea/Vomiting Lorazepam (Lorazepam 0.5 Mg Tab) 0.5 mg PO Q4H PRN PRN Reason: Anxiety/sleep Last Admin: 07/04/21 20:20 Dose: 0.5 mg Documented by: Magnesium Hydroxide (Magnesium Hydroxide 400 Mg/5 Ml Susp 30 Ml Cup) 30 ml PO Q12H PRN PRN Reason: Constipation Melatonin (Melatonin 3 Mg Tab) 9 mg PO BEDTIME PRN PRN Reason: Sleep Last Admin: 07/04/21 20:20 Dose: 9 mg Documented by: Ondansetron HCl (Ondansetron 4 Mg/2 Ml Sdv) 4 mg IV Q6H PRN PRN Reason: Nausea/Vomiting Ondansetron HCl (Ondansetron 4 Mg Tab.Dis) 4 mg PO Q6H PRN PRN Reason: Nausea able to take PO Pindolol (Pindolol 10 Mg Tab) 10 mg PO BID [facility] Last Admin: 07/05/21 09:07 Dose: 10 mg Documented by: Senna/Docusate Sodium (Docusate Sodium/Sennosides 50-8.6 Mg Tab) 1 tab PO BID P RN PRN Reason: Constipation Sodium Chloride (Sodium Chloride 0.9% 10 Ml Syringe) 10 ml FLUSH ASDIRECTED PRN PRN Reason: Keep Vein Open Last Admin: 07/01/21 10:04 Dose: 10 ml Documented by: Sodium Chloride (Sodium Chloride 0.65% Nasal [place] 45 Ml Bottle) 1 ml STACEY Q2H PRN PRN Reason: Dryness Last Admin: 07/02/21 12:52 Dose: 2 spr Documented by: Discontinued Medications Dexamethasone (Dexamethasone 4 Mg/Ml Sdv) 6 mg IVPUSH ONETIME ONE Stop: 07/01/21 09:30 Last Admin: 07/01/21 10:03 Dose: 6 mg Documented by: Remdesivir 200 mg/ Sodium (Chloride) 250 mls @ 250 mls/hr IV ONETIME ONE Stop: 07/01/21 10:29 Last Admin: 07/01/21 10:07 Dose: 250 mls/hr Documented by: Remdesivir 100 mg/ Sodium (Chloride) 100 mls @ 100 mls/hr IV Q24H [facility] Stop: 07/05/21 09:59 Last Admin: 07/05/21 09:12 Dose: 100 mls/hr Documented by: Potassium Chloride (Potassium Chloride 20 Meq Tab.Er) 40 meq PO ONETIME ONE Stop: 07/04/21 08:31 Last Admin: 07/04/21 09:35 Dose: 40 meq Documented by: - Exam Quality Assessment: Supplemental Oxygen, DVT Prophylaxis General: Alert, Oriented, Cooperative, Mild Distress Lungs: Decreased Breath Sounds, Crackles. No: Rales, Rhonchi, Wheezing Cardiovascular: Regular Rate, Regular Rhythm, No Murmurs GI/Abdominal Exam: Soft, Non-Tender, No Organomegaly, No Distention Extremities: Non-Tender, No Pedal Edema - Patient Data Lab Results Last 24 hrs: Laboratory Results - last 24 hr 07/05/21 07/05/21 07/05/21 Range/Units 04:50 04:50 04:50 WBC 13.9 H (4.5-11.0) K/uL RBC 4.25 (3.30-5.50) M/uL Hgb 11.7 L (12.0-15.0) g/dL Hct 36.2 (36.0-48.0) % MCV 85 (80-98) fL MCH 28 (27-31) pg MCHC 32 (32-36) % Plt Count 559 H (150-400) K/uL D-Dimer, Quantitative 598.27 H (0.0-500.0) ng/mL Sodium 143 (140-148) mmol/L Potassium 4.0 (3.6-5.2) mmol/L Chloride 106 (100-108) mmol/L Carbon Dioxide 27 (21-32) mmol/L Anion Gap 10.5 (5.0-14.0) mmol/L BUN 21 H (7-18) mg/dL Creatinine 0.8 (0.6-1.0) mg/dL Est Cr Clr Drug Dosing 58.12 mL/min Estimated GFR (MDRD) > 60 (>60) Glucose 135 H (74-106) mg/dL Calcium 8.3 L (8.5-10.1) mg/dL Total Bilirubin 0.4 (0.2-1.0) mg/dL AST 21 (15-37) U/L ALT 41 (12-78) U/L Alkaline Phosphatase 72 (46-116) U/L C-Reactive Protein 0.63 H (0.0-0.3) mg/dL Total Protein 5.8 L (6.4-8.2) g/dL Albumin 2.4 L (3.4-5.0) g/dL Globulin 3.4 (2.3-3.5) g/dL Albumin/Globulin Ratio 0.7 L (1.2-2.2) Result Diagrams: 07/05/21 04:50 07/05/21 04:50 Sepsis Event Note - Evaluation Sepsis Screening Result: Sepsis Risk - Focused Exam Vital Signs: Vital Signs Temp Pulse Pulse Resp BP BP Pulse Ox 07/05/21 11:06 92 L 07/05/21 11:00 96.1 F L 87 138/55 L 07/05/21 09:07 92 130/75 07/05/21 09:00 90 L 07/05/21 08:06 07/05/21 07:56 97.0 F 101 H 20 130/75 88 L 07/05/21 04:08 163/73 H 07/05/21 03:46 97.4 F 87 16 191/79 H 90 L Pulse Ox 07/05/21 11:06 07/05/21 11:00 07/05/21 09:07 07/05/21 09:00 07/05/21 08:06 88 L 07/05/21 07:56 07/05/21 04:08 07/05/21 03:46 - Problem List Review Problem List Initiated/Reviewed/Updated: Yes - Plan Plan:: ASSESSMENT AND PLAN - COVID-19 pneumonia-complicated by acute respiratory failure with hypoxia. Symptomatic on June 22. Previously unvaccinated. Stable since yesterday, continues to require 5 to 6 L of supplemental oxygen per minute -Dexamethasone 6 mg x 10 days (day 5) -Remdesivir x5 days -Enoxaparin every 24 hours -Supplement oxygen, wean as able -Symptomatic management of pain and cough -Isolation precautions through 07/07 (15 days) Maintenance issues - -DVT prophylaxis-enoxaparin -GI prophylaxis-not indicated -Nutrition-regular -Goss catheter-not indicated CODE STATUS -CPR okay, no intubation Disposition -I anticipate discharge home after the hospital stay Primary care physician -Dr Elvira Ponce
[2021-07-05] MEDS: Enoxaparin 40 MG/0.4 ML Syringe SUBCUT SCH (14:15)
[2021-07-05] MEDS: Melatonin 3 MG Tab PO PRN (20:28)
[2021-07-05] MEDS: LORazepam 0.5 MG Tab PO PRN (20:28)
[2021-07-06] MEDS: Pindolol 10 MG Tab PO SCH ×2 (08:48→20:45)
[2021-07-06] MEDS: Dexamethasone 4 MG/ML SDV IVPUSH SCH (08:49)
--- NOTE | 2021-07-06 12:48 | PCM.PN ---
- General Info Date of Service: 07/06/21 Subjective Update: Ms. Garcia has continued to require 6 L of supplemental oxygen per minute via nasal cannula. Appetite and overall strength seem to be modestly improved. She continues to experience significant shortness of breath and weakness with very minimal activity. Functional Status: Reports: Tolerating Diet, Urinating. Denies: Ambulating - Review of Systems General: Reports: Weakness, Fatigue. Denies: Fever, Chills Pulmonary: Reports: Shortness of Breath, Cough. Denies: Pleuritic Chest Pain, Sputum, Hemoptysis, Wheezing Cardiovascular: Reports: Dyspnea on Exertion. Denies: Chest Pain, Palpitations, Orthopnea, PND, Edema, Lightheadedness Gastrointestinal: Reports: No Symptoms Genitourinary: Reports: No Symptoms - Patient Data Vitals - Most Recent: Last Vital Signs Temp 96.6 F L 07/06/21 10:27 Pulse 90 07/06/21 10:27 Resp 18 07/06/21 10:27 BP 120/54 L 07/06/21 10:27 Pulse Ox 89 L 07/06/21 10:27 Weight - Most Recent: 189 lb I&O - Last 24 Hours: Intake & Output 07/05/21 07/06/21 07/06/21 22:59 06:59 14:59 Intake Total 420 120 Output Total 300 Balance 420 -180 Med Orders - Current: Current Medications Acetaminophen (Acetaminophen 325 Mg Tab) 650 mg PO Q4H PRN PRN Reason: Pain (Mild 1-3)/fever Last Admin: 07/05/21 08:16 Dose: 650 mg Documented by: Benzonatate (Benzonatate 100 Mg Cap) 100 mg PO TID PRN PRN Reason: Cough Last Admin: 07/05/21 20:28 Dose: 100 mg Documented by: Al Hydroxide/Mg Hydroxide 30 ml/ Diphenhydramine HCl 75 mg/Lidocaine HCl 30 ml 0 ml PO Q4H PRN PRN Reason: MOUTH CARE Last Admin: 07/05/21 20:28 Dose: 15 ml Documented by: Dexamethasone (Dexamethasone 4 Mg/Ml Sdv) 6 mg IVPUSH Q24H [facility] Stop: 07/10/21 09:01 Last Admin: 07/06/21 08:49 Dose: 6 mg Documented by: Enoxaparin Sodium (Enoxaparin 40 Mg/0.4 Ml Syringe) 40 mg SUBCUT Q24H [facility] Last Admin: 07/05/21 14:15 Dose: 40 mg Documented by: Guaifenesin/Dextromethorphan (Guaifenesin/Dextromethorphan 100-10 Mg/5 Ml Soln 1 0 Ml Cup) 10 ml PO Q4H PRN PRN Reason: Cough Last Admin: 07/04/21 18:14 Dose: 10 ml Documented by: Lorazepam (Lorazepam 2 Mg/Ml Sdv) 0.5 mg IVPUSH Q4H PRN PRN Reason: Nausea/Vomiting Lorazepam (Lorazepam 0.5 Mg Tab) 0.5 mg PO Q4H PRN PRN Reason: Anxiety/sleep Last Admin: 07/05/21 20:28 Dose: 0.5 mg Documented by: Magnesium Hydroxide (Magnesium Hydroxide 400 Mg/5 Ml Susp 30 Ml Cup) 30 ml PO Q12H PRN PRN Reason: Constipation Melatonin (Melatonin 3 Mg Tab) 9 mg PO BEDTIME PRN PRN Reason: Sleep Last Admin: 07/05/21 20:28 Dose: 9 mg Documented by: Ondansetron HCl (Ondansetron 4 Mg/2 Ml Sdv) 4 mg IV Q6H PRN PRN Reason: Nausea/Vomiting Ondansetron HCl (Ondansetron 4 Mg Tab.Dis) 4 mg PO Q6H PRN PRN Reason: Nausea able to take PO Pindolol (Pindolol 10 Mg Tab) 10 mg PO BID [facility] Last Admin: 07/06/21 08:48 Dose: 10 mg Documented by: Senna/Docusate Sodium (Docusate Sodium/Sennosides 50-8.6 Mg Tab) 1 tab PO BID PRN PRN Reason: Constipation Sodium Chloride (Sodium Chloride 0.9% 10 Ml Syringe) 10 ml FLUSH ASDIRECTED PRN PRN Reason: Keep Vein Open Last Admin: 07/01/21 10:04 Dose: 10 ml Documented by: Sodium Chloride (Sodium Chloride 0.65% Nasal [place] 45 Ml Bottle) 1 ml STACEY Q2H PRN PRN Reason: Dryness Last Admin: 07/02/21 12:52 Dose: 2 spr Documented by: Discontinued Medications Dexamethasone (Dexamethasone 4 Mg/Ml Sdv) 6 mg IVPUSH ONETIME ONE Stop: 07/01/21 09:30 Last Admin: 07/01/21 10:03 Dose: 6 mg Documented by: Remdesivir 200 mg/ Sodium (Chloride) 250 mls @ 250 mls/hr IV ONETIME ONE Stop: 07/01/21 10:29 Last Admin: 07/01/21 10:07 Dose: 250 mls/hr Documented by: Remdesivir 100 mg/ Sodium (Chloride) 100 mls @ 100 mls/hr IV Q24H [facility] Stop: 07/05/21 09:59 Last Admin: 07/05/21 09:12 Dose: 100 mls/hr Documented by: Potassium Chloride (Potassium Chloride 20 Meq Tab.Er) 40 meq PO ONETIME ONE Stop: 07/04/21 08:31 Last Admin: 07/04/21 09:35 Dose: 40 meq Documented by: - Exam Quality Assessment: Supplemental Oxygen, DVT Prophylaxis General: Alert, Oriented, Cooperative, Moderate Distress Lungs: Crackles. No: Rales, Rhonchi, Wheezing Cardiovascular: Regular Rate, Regular Rhythm, No Murmurs GI/Abdominal Exam: Soft, Non-Tender, No Organomegaly, No Distention Extremities: Non-Tender, No Pedal Edema - Patient Data Result Diagrams: 07/05/21 04:50 07/05/21 04:50 Sepsis Event Note - Evaluation Sepsis Screening Result: No Definite Risk - Focused Exam Vital Signs: Vital Signs Temp Pulse Pulse Resp BP BP Pulse Ox 07/06/21 10:27 96.6 F L 90 18 120/54 L 89 L 07/06/21 09:00 90 L 07/06/21 08:48 87 122/75 07/06/21 08:13 96.3 F L 91 18 121/75 89 L - Problem List Review Problem List Initiated/Reviewed/Updated: Yes - My Orders Last 24 Hours: My Active Orders 07/07/21 05:00 CBC WITH AUTO DIFF [HEME] Timed COMPREHENSIVE METABOLIC PN,CMP [CHEM] Timed 07/07/21 05:11 CRP [C-REACTIVE PROTEIN] [CHEM] AM D Dimer [D-DIMER QUANTITATIVE] [COAG] AM - Plan Plan:: ASSESSMENT AND PLAN - COVID-19 pneumonia-complicated by acute respiratory failure with hypoxia. Symptomatic on June 22. Previously unvaccinated. Stable since yesterday, continues to require 6 L of supplemental oxygen per minute -Dexamethasone 6 mg x 10 days (day 6) -Remdesivir x5 days, completed -Enoxaparin every 24 hours -Supplement oxygen, wean as able -Symptomatic management of pain and cough -Isolation precautions through 07/07 (15 days) Maintenance issues - -DVT prophylaxis-enoxaparin -GI prophylaxis-not indicated -Nutrition-regular -Goss catheter-not indicated CODE STATUS -CPR okay, no intubation Disposition -I anticipate discharge home after the hospital stay Primary care physician -Dr Elvira Ponce
[2021-07-06] MEDS: Enoxaparin 40 MG/0.4 ML Syringe SUBCUT SCH (13:57)
[2021-07-06] MEDS: Acetaminophen 325 MG Tab PO PRN (14:27)
[2021-07-06] MEDS: LORazepam 0.5 MG Tab PO PRN (20:46)
[2021-07-06] MEDS: Melatonin 3 MG Tab PO PRN (20:46)
[2021-07-06] MEDS: Benzonatate 100 MG Cap PO PRN (20:46)
[2021-07-07] MEDS: Pindolol 10 MG Tab PO SCH ×2 (08:09→20:30)
[2021-07-07] MEDS: Dexamethasone 4 MG/ML SDV IVPUSH SCH (08:11)
[2021-07-07] MEDS: Enoxaparin 40 MG/0.4 ML Syringe SUBCUT SCH (13:49)
--- NOTE | 2021-07-07 15:12 | PCM.PN ---
- General Info Date of Service: 07/07/21 Subjective Update: Ms. Garcia has been stable since yesterday, continues to require 6 L of supplemental oxygen per minute via nasal cannula. She has noted modest improvement in appetite as well as overall strength. Continues to get short of breath with fairly minimal exertion. Functional Status: Reports: Urinating - Review of Systems General: Reports: Weakness, Fatigue. Denies: Fever, Chills Pulmonary: Reports: Shortness of Breath, Cough. Denies: Pleuritic Chest Pain, Sputum, Hemoptysis, Wheezing Cardiovascular: Reports: Dyspnea on Exertion. Denies: Chest Pain, Palpitations, Orthopnea, PND, Edema, Lightheadedness Gastrointestinal: Reports: No Symptoms Genitourinary: Reports: No Symptoms - Patient Data Vitals - Most Recent: Last Vital Signs Temp 96.9 F 07/07/21 11:25 Pulse 78 07/07/21 11:25 Resp 18 07/07/21 11:25 BP 157/68 H 07/07/21 11:25 Pulse Ox 90 L 07/07/21 11:25 Weight - Most Recent: 189 lb I&O - Last 24 Hours: Intake & Output 07/07/21 07/07/21 07/07/21 06:59 14:59 22:59 Intake Total 750 Balance 750 Lab Results Last 24 Hours: Laboratory Results - last 24 hr 07/07/21 07/07/21 07/07/21 Range/Units 05:10 05:10 05:10 WBC 18.1 H (4.5-11.0) K/uL RBC 4.30 (3.30-5.50) M/uL Hgb 12.2 (12.0-15.0) g/dL Hct 36.6 (36.0-48.0) % MCV 85 (80-98) fL MCH 28 (27-31) pg MCHC 33 (32-36) % Plt Count 566 H (150-400) K/uL Add Manual Diff Yes Neutrophils % (Manual) 80 H (36-66) % Band Neutrophils % 1 L (5-11) % Lymphocytes % (Manual) 9 L (24-44) % Monocytes % (Manual) 10 H (2-6) % D-Dimer, Quantitative 580.95 H (0.0-500.0) ng/mL Sodium 142 (140-148) mmol/L Potassium 4.3 (3.6-5.2) mmol/L Chloride 106 (100-108) mmol/L Carbon Dioxide 28 (21-32) mmol/L Anion Gap 8.1 (5.0-14.0) mmol/L BUN 24 H (7-18) mg/dL Creatinine 0.8 (0.6-1.0) mg/dL Est Cr Clr Drug Dosing 58.12 mL/min Estimated GFR (MDRD) > 60 (>60) Glucose 131 H (74-106) mg/dL Calcium 8.3 L (8.5-10.1) mg/dL Total Bilirubin 0.3 (0.2-1.0) mg/dL AST 13 L (15-37) U/L ALT 32 (12-78) U/L Alkaline Phosphatase 65 (46-116) U/L C-Reactive Protein (0.0-0.3) mg/dL Total Protein 5.7 L (6.4-8.2) g/dL Albumin 2.4 L (3.4-5.0) g/dL Globulin 3.3 (2.3-3.5) g/dL Albumin/Globulin Ratio 0.7 L (1.2-2.2) 07/07/21 Range/Units 05:10 WBC (4.5-11.0) K/uL RBC (3.30-5.50) M/uL Hgb (12.0-15.0) g/dL Hct (36.0-48.0) % MCV (80-98) fL MCH (27-31) pg MCHC (32-36) % Plt Count (150-400) K/uL Add Manual Diff Neutrophils % (Manual) (36-66) % Band Neutrophils % (5-11) % Lymphocytes % (Manual) (24-44) % Monocytes % (Manual) (2-6) % D-Dimer, Quantitative (0.0-500.0) ng/mL Sodium (140-148) mmol/L Potassium (3.6-5.2) mmol/L Chloride (100-108) mmol/L Carbon Dioxide (21-32) mmol/L Anion Gap (5.0-14.0) mmol/L BUN (7-18) mg/dL Creatinine (0.6-1.0) mg/dL Est Cr Clr Drug Dosing mL/min Estimated GFR (MDRD) (>60) Glucose (74-106) mg/dL Calcium (8.5-10.1) mg/dL Total Bilirubin (0.2-1.0) mg/dL AST (15-37) U/L ALT (12-78) U/L Alkaline Phosphatase (46-116) U/L C-Reactive Protein 0.39 H (0.0-0.3) mg/dL Total Protein (6.4-8.2) g/dL Albumin (3.4-5.0) g/dL Globulin (2.3-3.5) g/dL Albumin/Globulin Ratio (1.2-2.2) Med Orders - Current: Current Medications Acetaminophen (Acetaminophen 325 Mg Tab) 650 mg PO Q4H PRN PRN Reason: Pain (Mild 1-3)/fever Last Admin: 07/06/21 14:27 Dose: 650 mg Documented by: Benzonatate (Benzonatate 100 Mg Cap) 100 mg PO TID PRN PRN Reason: Cough Last Admin: 07/06/21 20:46 Dose: 100 mg Documented by: Al Hydroxide/Mg Hydroxide 30 ml/ Diphenhydramine HCl 75 mg/Lidocaine HCl 30 ml 0 ml PO Q4H PRN PRN Reason: MOUTH CARE Last Admin: 07/05/21 20:28 Dose: 15 ml Documented by: Dexamethasone (Dexamethasone 4 Mg/Ml Sdv) 6 mg IVPUSH Q24H [facility] Stop: 07/10/21 09:01 Last Admin: 07/07/21 08:11 Dose: 6 mg Documented by: Enoxaparin Sodium (Enoxaparin 40 Mg/0.4 Ml Syringe) 40 mg SUBCUT Q24H [facility] Last Admin: 07/07/21 13:49 Dose: 40 mg Documented by: Guaifenesin/Dextromethorphan (Guaifenesin/Dextromethorphan 100-10 Mg/5 Ml Soln 10 Ml Cup) 10 ml PO Q4H PRN PRN Reason: Cough Last Admin: 07/04/21 18:14 Dose: 10 ml Documented by: Lorazepam (Lorazepam 2 Mg/Ml Sdv) 0.5 mg IVPUSH Q4H PRN PRN Reason: Nausea/Vomiting Lorazepam (Lorazepam 0.5 Mg Tab) 0.5 mg PO Q4H PRN PRN Reason: Anxiety/sleep Last Admin: 07/06/21 20:46 Dose: 0.5 mg Documented by: Magnesium Hydroxide (Magnesium Hydroxide 400 Mg/5 Ml Susp 30 Ml Cup) 30 ml PO Q12H PRN PRN Reason: Constipation Melatonin (Melatonin 3 Mg Tab) 9 mg PO BEDTIME PRN PRN Reason: Sleep Last Admin: 07/06/21 20:46 Dose: 9 mg Documented by: Ondansetron HCl (Ondansetron 4 Mg/2 Ml Sdv) 4 mg IV Q6H PRN PRN Reason: Nausea/Vomiting Ondansetron HCl (Ondansetron 4 Mg Tab.Dis) 4 mg PO Q6H PRN PRN Reason: Nausea able to take PO Pindolol (Pindolol 10 Mg Tab) 10 mg PO BID [facility] Last Admin: 07/07/21 08:09 Dose: 10 mg Documented by: Senna/Docusate Sodium (Docusate Sodium/Sennosides 50-8.6 Mg Tab) 1 tab PO BID PRN PRN Reason: Constipation Sodium Chloride (Sodium Chloride 0.9% 10 Ml Syringe) 10 ml FLUSH ASDIRECTED PRN PRN Reason: Keep Vein Open Last Admin: 07/01/21 10:04 Dose: 10 ml Documented by: Sodium Chloride (Sodium Chloride 0.65% Nasal [place] 45 Ml Bottle) 1 ml STACEY Q2H PRN PRN Reason: Dryness Last Admin: 07/02/21 12:52 Dose: 2 spr Documented by: Discontinued Medications Dexamethasone (Dexamethasone 4 Mg/Ml Sdv) 6 mg IVPUSH ONETIME ONE Stop: 07/01/21 09:30 Last Admin: 07/01/21 10:03 Dose: 6 mg Documented by: Remdesivir 200 mg/ Sodium (Chloride) 250 mls @ 250 mls/hr IV ONETIME ONE Stop: 07/01/21 10:29 Last Admin: 07/01/21 10:07 Dose: 250 mls/hr Documented by: Remdesivir 100 mg/ Sodium (Chloride) 100 mls @ 100 mls/hr IV Q24H [facility] Stop: 07/05/21 09:59 Last Admin: 07/05/21 09:12 Dose: 100 mls/hr Documented by: Potassium Chloride (Potassium Chloride 20 Meq Tab.Er) 40 meq PO ONETIME ONE Stop: 07/04/21 08:31 Last Admin: 07/04/21 09:35 Dose: 40 meq Documented by: - Exam Quality Assessment: Supplemental Oxygen, DVT Prophylaxis General: Alert, Oriented, Cooperative, Moderate Distress Lungs: Crackles. No: Rales, Rhonchi, Wheezing Cardiovascular: Regular Rate, Regular Rhythm, No Murmurs GI/Abdominal Exam: Soft, Non-Tender, No Organomegaly, No Distention Extremities: Non-Tender, No Pedal Edema - Patient Data Lab Results Last 24 hrs: Laboratory Results - last 24 hr 07/07/21 07/07/21 07/07/21 Range/Units 05:10 05:10 05:10 WBC 18.1 H (4.5-11.0) K/uL RBC 4.30 (3.30-5.50) M/uL Hgb 12.2 (12.0-15.0) g/dL Hct 36.6 (36.0-48.0) % MCV 85 (80-98) fL MCH 28 (27-31) pg MCHC 33 (32-36) % Plt Count 566 H (150-400) K/uL Add Manual Diff Yes Neutrophils % (Manual) 80 H (36-66) % Band Neutrophils % 1 L (5-11) % Lymphocytes % (Manual) 9 L (24-44) % Monocytes % (Manual) 10 H (2-6) % D-Dimer, Quantitative 580.95 H (0.0-500.0) ng/mL Sodium 142 (140-148) mmol/L Potassium 4.3 (3.6-5.2) mmol/L Chloride 106 (100-108) mmol/L Carbon Dioxide 28 (21-32) mmol/L Anion Gap 8.1 (5.0-14.0) mmol/L BUN 24 H (7-18) mg/dL Creatinine 0.8 (0.6-1.0) mg/dL Est Cr Clr Drug Dosing 58.12 mL/min Estimated GFR (MDRD) > 60 (>60) Glucose 131 H (74-106) mg/dL Calcium 8.3 L (8.5-10.1) mg/dL Total Bilirubin 0.3 (0.2-1.0) mg/dL AST 13 L (15-37) U/L ALT 32 (12-78) U/L Alkaline Phosphatase 65 (46-116) U/L C-Reactive Protein (0.0-0.3) mg/dL Total Protein 5.7 L (6.4-8.2) g/dL Albumin 2.4 L (3.4-5.0) g/dL Globulin 3.3 (2.3-3.5) g/dL Albumin/Globulin Ratio 0.7 L (1.2-2.2) 07/07/21 Range/Units 05:10 WBC (4.5-11.0) K/uL RBC (3.30-5.50) M/uL Hgb (12.0-15.0) g/dL Hct (36.0-48.0) % MCV (80-98) fL MCH (27-31) pg MCHC (32-36) % Plt Count (150-400) K/uL Add Manual Diff Neutrophils % (Manual) (36-66) % Band Neutrophils % (5-11) % Lymphocytes % (Manual) (24-44) % Monocytes % (Manual) (2-6) % D-Dimer, Quantitative (0.0-500.0) ng/mL Sodium (140-148) mmol/L Potassium (3.6-5.2) mmol/L Chloride (100-108) mmol/L Carbon Dioxide (21-32) mmol/L Anion Gap (5.0-14.0) mmol/L BUN (7-18) mg/dL Creatinine (0.6-1.0) mg/dL Est Cr Clr Drug Dosing mL/min Estimated GFR (MDRD) (>60) Glucose (74-106) mg/dL Calcium (8.5-10.1) mg/dL Total Bilirubin (0.2-1.0) mg/dL AST (15-37) U/L ALT (12-78) U/L Alkaline Phosphatase (46-116) U/L C-Reactive Protein 0.39 H (0.0-0.3) mg/dL Total Protein (6.4-8.2) g/dL Albumin (3.4-5.0) g/dL Globulin (2.3-3.5) g/dL Albumin/Globulin Ratio (1.2-2.2) Result Diagrams: 07/07/21 05:10 07/07/21 05:10 Sepsis Event Note - Evaluation Sepsis Screening Result: Sepsis Risk - Focused Exam Vital Signs: Vital Signs Temp Pulse Pulse Resp BP BP Pulse Ox 07/07/21 11:25 96.9 F 78 18 157/68 H 90 L 07/07/21 08:09 87 125/51 L 07/07/21 08:03 96.3 F L 80 18 125/51 L 90 L 07/07/21 03:33 95.5 F L 88 18 146/74 H 88 L - Problem List Review Problem List Initiated/Reviewed/Updated: Yes - My Orders Last 24 Hours: My Active Orders 07/08/21 05:00 CBC WITH AUTO DIFF [HEME] Timed - Plan Plan:: ASSESSMENT AND PLAN - COVID-19 pneumonia-complicated by acute respiratory failure with hypoxia. Symptomatic on June 22. Previously unvaccinated. Stable since yesterday, continues to require 6 L of supplemental oxygen per minute -Dexamethasone 6 mg x 10 days (day 7) -Remdesivir x5 days, completed -Enoxaparin every 24 hours -Supplement oxygen, wean as able -Symptomatic management of pain and cough -Isolation precautions through 07/07 (15 days) Maintenance issues - -DVT prophylaxis-enoxaparin -GI prophylaxis-not indicated -Nutrition-regular -Goss catheter-not indicated CODE STATUS -CPR okay, no intubation Disposition -I anticipate discharge home after the hospital stay Primary care physician -Dr Elvira Ponce
[2021-07-07] MEDS: Melatonin 3 MG Tab PO PRN (20:30)
[2021-07-07] MEDS: LORazepam 0.5 MG Tab PO PRN (20:30)
[2021-07-07] MEDS: Benzonatate 100 MG Cap PO PRN (20:30)
[2021-07-08] MEDS: Dexamethasone 4 MG/ML SDV IVPUSH SCH (08:57)
[2021-07-08] MEDS: Pindolol 10 MG Tab PO SCH ×2 (08:58→20:41)
[2021-07-08] MEDS: Enoxaparin 40 MG/0.4 ML Syringe SUBCUT SCH (14:33)
--- NOTE | 2021-07-08 14:55 | PCM.PN ---
- General Info Date of Service: 07/08/21 Subjective Update: Ms. Garcia is essentially unchanged since yesterday, continues to require 6 L of oxygen per minute via nasal cannula. She did have a bowel movement this morning and became very short of breath with fairly minimal activity. Remains weak, oral intake moderate. Functional Status: Reports: Urinating - Review of Systems General: Reports: Weakness, Fatigue. Denies: Fever, Chills Pulmonary: Reports: Shortness of Breath, Cough. Denies: Pleuritic Chest Pain, Sputum, Hemoptysis, Wheezing Cardiovascular: Reports: Dyspnea on Exertion. Denies: Chest Pain, Palpitations, Orthopnea, PND, Edema, Lightheadedness Gastrointestinal: Reports: No Symptoms Genitourinary: Reports: No Symptoms - Patient Data Vitals - Most Recent: Last Vital Signs Temp 96.1 F L 07/08/21 14:17 Pulse 92 07/08/21 14:17 Resp 18 07/08/21 14:17 BP 101/49 L 07/08/21 14:17 Pulse Ox 90 L 07/08/21 14:17 Weight - Most Recent: 189 lb I&O - Last 24 Hours: Intake & Output 07/07/21 07/08/21 07/08/21 22:59 06:59 14:59 Intake Total 740 240 Balance 740 240 Lab Results Last 24 Hours: Laboratory Results - last 24 hr 07/08/21 Range/Units 05:11 WBC 13.6 H (4.5-11.0) K/uL RBC 4.47 (3.30-5.50) M/uL Hgb 12.4 (12.0-15.0) g/dL Hct 38.7 (36.0-48.0) % MCV 87 (80-98) fL MCH 28 (27-31) pg MCHC 32 (32-36) % Plt Count 669 H (150-400) K/uL Add Manual Diff Yes Neutrophils % (Manual) 70 H (36-66) % Lymphocytes % (Manual) 16 L (24-44) % Monocytes % (Manual) 12 H (2-6) % Eosinophils % (Manual) 2 (2-4) % Atypical Lymphocytes Few Med Orders - Current: Current Medications Acetaminophen (Acetaminophen 325 Mg Tab) 650 mg PO Q4H PRN PRN Reason: Pain (Mild 1-3)/fever Last Admin: 07/06/21 14:27 Dose: 650 mg Documented by: Benzonatate (Benzonatate 100 Mg Cap) 100 mg PO TID PRN PRN Reason: Cough Last Admin: 07/07/21 20:30 Dose: 100 mg Documented by: Al Hydroxide/Mg Hydroxide 30 ml/ Diphenhydramine HCl 75 mg/Lidocaine HCl 30 ml 0 ml PO Q4H PRN PRN Reason: MOUTH CARE Last Admin: 07/05/21 20:28 Dose: 15 ml Documented by: Dexamethasone (Dexamethasone 4 Mg/Ml Sdv) 6 mg IVPUSH Q24H [facility] Stop: 07/10/21 09:01 Last Admin: 07/08/21 08:57 Dose: 6 mg Documented by: Enoxaparin Sodium (Enoxaparin 40 Mg/0.4 Ml Syringe) 40 mg SUBCUT Q24H [facility] Last Admin: 07/08/21 14:33 Dose: 40 mg Documented by: Guaifenesin/Dextromethorphan (Guaifenesin/Dextromethorphan 100-10 Mg/5 Ml Soln 10 Ml Cup) 10 ml PO Q4H PRN PRN Reason: Cough Last Admin: 07/04/21 18:14 Dose: 10 ml Documented by: Lorazepam (Lorazepam 2 Mg/Ml Sdv) 0.5 mg IVPUSH Q4H PRN PRN Reason: Nausea/Vomiting Lorazepam (Lorazepam 0.5 Mg Tab) 0.5 mg PO Q4H PRN PRN Reason: Anxiety/sleep Last Admin: 07/07/21 20:30 Dose: 0.5 mg Documented by: Magnesium Hydroxide (Magnesium Hydroxide 400 Mg/5 Ml Susp 30 Ml Cup) 30 ml PO Q12H PRN PRN Reason: Constipation Melatonin (Melatonin 3 Mg Tab) 9 mg PO BEDTIME PRN PRN Reason: Sleep Last Admin: 07/07/21 20:30 Dose: 9 mg Documented by: Ondansetron HCl (Ondansetron 4 Mg/2 Ml Sdv) 4 mg IV Q6H PRN PRN Reason: Nausea/Vomiting Ondansetron HCl (Ondansetron 4 Mg Tab.Dis) 4 mg PO Q6H PRN PRN Reason: Nausea able to take PO Pindolol (Pindolol 10 Mg Tab) 10 mg PO BID [facility] Last Admin: 07/08/21 08:58 Dose: 10 mg Documented by: Senna/Docusate Sodium (Docusate Sodium/Sennosides 50-8.6 Mg Tab) 1 tab PO BID PRN PRN Reason: Constipation Sodium Chloride (Sodium Chloride 0.9% 10 Ml Syringe) 10 ml FLUSH ASDIRECTED PRN PRN Reason: Keep Vein Open Last Admin: 07/01/21 10:04 Dose: 10 ml Documented by: Sodium Chloride (Sodium Chloride 0.65% Nasal [place] 45 Ml Bottle) 1 ml STACEY Q2H PRN PRN Reason: Dryness Last Admin: 07/02/21 12:52 Dose: 2 spr Documented by: Discontinued Medications Dexamethasone (Dexamethasone 4 Mg/Ml Sdv) 6 mg IVPUSH ONETIME ONE Stop: 07/01/21 09:30 Last Admin: 07/01/21 10:03 Dose: 6 mg Documented by: Remdesivir 200 mg/ Sodium (Chloride) 250 mls @ 250 mls/hr IV ONETIME ONE Stop: 07/01/21 10:29 Last Admin: 07/01/21 10:07 Dose: 250 mls/hr Documented by: Remdesivir 100 mg/ Sodium (Chloride) 100 mls @ 100 mls/hr IV Q24H [facility] Stop: 07/05/21 09:59 Last Admin: 07/05/21 09:12 Dose: 100 mls/hr Documented by: Potassium Chloride (Potassium Chloride 20 Meq Tab.Er) 40 meq PO ONETIME ONE Stop: 07/04/21 08:31 Last Admin: 07/04/21 09:35 Dose: 40 meq Documented by: - Exam Quality Assessment: Supplemental Oxygen, DVT Prophylaxis General: Alert, Oriented, Cooperative, Moderate Distress Lungs: Decreased Breath Sounds, Crackles. No: Rales, Rhonchi, Wheezing Cardiovascular: Regular Rate, Regular Rhythm, No Murmurs GI/Abdominal Exam: Soft, Non-Tender, No Organomegaly, No Distention Extremities: Non-Tender, No Pedal Edema - Patient Data Lab Results Last 24 hrs: Laboratory Results - last 24 hr 07/08/21 Range/Units 05:11 WBC 13.6 H (4.5-11.0) K/uL RBC 4.47 (3.30-5.50) M/uL Hgb 12.4 (12.0-15.0) g/dL Hct 38.7 (36.0-48.0) % MCV 87 (80-98) fL MCH 28 (27-31) pg MCHC 32 (32-36) % Plt Count 669 H (150-400) K/uL Add Manual Diff Yes Neutrophils % (Manual) 70 H (36-66) % Lymphocytes % (Manual) 16 L (24-44) % Monocytes % (Manual) 12 H (2-6) % Eosinophils % (Manual) 2 (2-4) % Atypical Lymphocytes Few Result Diagrams: 07/08/21 05:11 07/07/21 05:10 Sepsis Event Note - Evaluation Sepsis Screening Result: Sepsis Risk - Focused Exam Vital Signs: Vital Signs Temp Pulse Pulse Resp BP BP Pulse Ox 07/08/21 14:17 96.1 F L 92 18 101/49 L 90 L 07/08/21 10:38 76 18 116/75 91 L 07/08/21 08:58 97 112/72 07/08/21 08:50 95.2 F L 97 18 112/72 91 L - Problem List Review Problem List Initiated/Reviewed/Updated: Yes - My Orders Last 24 Hours: My Active Orders 07/09/21 05:00 CBC WITH AUTO DIFF [HEME] Timed COMPREHENSIVE METABOLIC PN,CMP [CHEM] Timed 07/09/21 05:11 CRP [C-REACTIVE PROTEIN] [CHEM] AM D Dimer [D-DIMER QUANTITATIVE] [COAG] AM - Plan Plan:: ASSESSMENT AND PLAN - COVID-19 pneumonia-complicated by acute respiratory failure with hypoxia. Symptomatic on June 22. Previously unvaccinated. Stable since yesterday, continues to require 6 L of supplemental oxygen per minute -Dexamethasone 6 mg x 10 days (day 8) -Remdesivir x5 days, completed -Enoxaparin every 24 hours -Supplement oxygen, wean as able -Symptomatic management of pain and cough -Isolation precautions through 07/07 (15 days) Maintenance issues - -DVT prophylaxis-enoxaparin -GI prophylaxis-not indicated -Nutrition-regular -Goss catheter-not indicated CODE STATUS -CPR okay, no intubation Disposition -I anticipate discharge home after the hospital stay Primary care physician -Dr Elvira Ponce
[2021-07-08] MEDS: LORazepam 0.5 MG Tab PO PRN (20:41)
[2021-07-08] MEDS: Benzonatate 100 MG Cap PO PRN (20:41)
[2021-07-08] MEDS: Melatonin 3 MG Tab PO PRN (20:41)
[2021-07-09] MEDS: guaiFENesin/Dextromethorphan 100-10 MG/5 ML Soln 10 ML Cup PO PRN (02:21)
[2021-07-09] MEDS: Pindolol 10 MG Tab PO SCH ×2 (09:05→22:05)
[2021-07-09] MEDS: Dexamethasone 4 MG/ML SDV IVPUSH SCH (09:06)
[2021-07-09] MEDS: Enoxaparin 40 MG/0.4 ML Syringe SUBCUT SCH (14:04)
--- NOTE | 2021-07-09 16:20 | PCM.PN ---
- General Info Date of Service: 07/09/21 Subjective Update: Ms. Garcia has shown some improvement to the last 24 hours, today has been on 4 to 5 L of oxygen via nasal cannula. She continues to note improvement in appetite and strength. Feels that she is less short of breath with activity and recovers somewhat faster. Functional Status: Reports: Tolerating Diet, Urinating - Review of Systems General: Reports: Weakness, Fatigue. Denies: Fever, Chills Pulmonary: Reports: Shortness of Breath, Cough. Denies: Pleuritic Chest Pain, Sputum, Hemoptysis, Wheezing Cardiovascular: Reports: Dyspnea on Exertion. Denies: Chest Pain, Palpitations, Orthopnea, PND, Edema, Lightheadedness Gastrointestinal: Reports: No Symptoms Genitourinary: Reports: No Symptoms - Patient Data Vitals - Most Recent: Last Vital Signs Temp 97.0 F 07/09/21 15:00 Pulse 83 07/09/21 15:00 Resp 18 07/09/21 15:00 BP 105/54 L 07/09/21 15:00 Pulse Ox 94 L 07/09/21 15:00 Weight - Most Recent: 189 lb Lab Results Last 24 Hours: Laboratory Results - last 24 hr 07/09/21 07/09/21 07/09/21 Range/Units 04:25 04:25 04:25 WBC 14.7 H (4.5-11.0) K/uL RBC 4.38 (3.30-5.50) M/uL Hgb 12.5 (12.0-15.0) g/dL Hct 37.8 (36.0-48.0) % MCV 86 (80-98) fL MCH 29 (27-31) pg MCHC 33 (32-36) % Plt Count 604 H (150-400) K/uL Add Manual Diff Yes Neutrophils % (Manual) 77 H (36-66) % Lymphocytes % (Manual) 13 L (24-44) % Monocytes % (Manual) 10 H (2-6) % D-Dimer, Quantitative 857.97 H (0.0-500.0) ng/mL Sodium 141 (140-148) mmol/L Potassium 4.3 (3.6-5.2) mmol/L Chloride 105 (100-108) mmol/L Carbon Dioxide 28 (21-32) mmol/L Anion Gap 8.0 (5.0-14.0) mmol/L BUN 26 H (7-18) mg/dL Creatinine 0.9 (0.6-1.0) mg/dL Est Cr Clr Drug Dosing 51.66 mL/min Estimated GFR (MDRD) > 60 (>60) Glucose 99 (74-106) mg/dL Calcium 7.8 L (8.5-10.1) mg/dL Total Bilirubin 0.5 D (0.2-1.0) mg/dL AST 11 L (15-37) U/L ALT 23 (12-78) U/L Alkaline Phosphatase 65 (46-116) U/L C-Reactive Protein (0.0-0.3) mg/dL Total Protein 5.6 L (6.4-8.2) g/dL Albumin 2.3 L (3.4-5.0) g/dL Globulin 3.3 (2.3-3.5) g/dL Albumin/Globulin Ratio 0.7 L (1.2-2.2) 07/09/21 Range/Units 04:25 WBC (4.5-11.0) K/uL RBC (3.30-5.50) M/uL Hgb (12.0-15.0) g/dL Hct (36.0-48.0) % MCV (80-98) fL MCH (27-31) pg MCHC (32-36) % Plt Count (150-400) K/uL Add Manual Diff Neutrophils % (Manual) (36-66) % Lymphocytes % (Manual) (24-44) % Monocytes % (Manual) (2-6) % D-Dimer, Quantitative (0.0-500.0) ng/mL Sodium (140-148) mmol/L Potassium (3.6-5.2) mmol/L Chloride (100-108) mmol/L Carbon Dioxide (21-32) mmol/L Anion Gap (5.0-14.0) mmol/L BUN (7-18) mg/dL Creatinine (0.6-1.0) mg/dL Est Cr Clr Drug Dosing mL/min Estimated GFR (MDRD) (>60) Glucose (74-106) mg/dL Calcium (8.5-10.1) mg/dL Total Bilirubin (0.2-1.0) mg/dL AST (15-37) U/L ALT (12-78) U/L Alkaline Phosphatase (46-116) U/L C-Reactive Protein 0.18 (0.0-0.3) mg/dL Total Protein (6.4-8.2) g/dL Albumin (3.4-5.0) g/dL Globulin (2.3-3.5) g/dL Albumin/Globulin Ratio (1.2-2.2) Med Orders - Current: Current Medications Acetaminophen (Acetaminophen 325 Mg Tab) 650 mg PO Q4H PRN PRN Reason: Pain (Mild 1-3)/fever Last Admin: 07/06/21 14:27 Dose: 650 mg Documented by: Benzonatate (Benzonatate 100 Mg Cap) 100 mg PO TID PRN PRN Reason: Cough Last Admin: 07/08/21 20:41 Dose: 100 mg Documented by: Al Hydroxide/Mg Hydroxide 30 ml/ Diphenhydramine HCl 75 mg/Lidocaine HCl 30 ml 0 ml PO Q4H PRN PRN Reason: MOUTH CARE Last Admin: 07/05/21 20:28 Dose: 15 ml Documented by: Dexamethasone (Dexamethasone 4 Mg/Ml Sdv) 6 mg IVPUSH Q24H [facility] Stop: 07/10/21 09:01 Last Admin: 07/09/21 09:06 Dose: 6 mg Documented by: Enoxaparin Sodium (Enoxaparin 40 Mg/0.4 Ml Syringe) 40 mg SUBCUT Q24H [facility] Last Admin: 07/09/21 14:04 Dose: 40 mg Documented by: Guaifenesin/Dextromethorphan (Guaifenesin/Dextromethorphan 100-10 Mg/5 Ml Soln 10 Ml Cup) 10 ml PO Q4H PRN PRN Reason: Cough Last Admin: 07/09/21 02:21 Dose: 10 ml Documented by: Lorazepam (Lorazepam 2 Mg/Ml Sdv) 0.5 mg IVPUSH Q4H PRN PRN Reason: Nausea/Vomiting Lorazepam (Lorazepam 0.5 Mg Tab) 0.5 mg PO Q4H PRN PRN Reason: Anxiety/sleep Last Admin: 07/08/21 20:41 Dose: 0.5 mg Documented by: Magnesium Hydroxide (Magnesium Hydroxide 400 Mg/5 Ml Susp 30 Ml Cup) 30 ml PO Q12H PRN PRN Reason: Constipation Melatonin (Melatonin 3 Mg Tab) 9 mg PO BEDTIME PRN PRN Reason: Sleep Last Admin: 07/08/21 20:41 Dose: 9 mg Documented by: Ondansetron HCl (Ondansetron 4 Mg/2 Ml Sdv) 4 mg IV Q6H PRN PRN Reason: Nausea/Vomiting Ondansetron HCl (Ondansetron 4 Mg Tab.Dis) 4 mg PO Q6H PRN PRN Reason: Nausea able to take PO Pindolol (Pindolol 10 Mg Tab) 10 mg PO BID [facility] Last Admin: 07/09/21 09:05 Dose: 10 mg Documented by: Senna/Docusate Sodium (Docusate Sodium/Sennosides 50-8.6 Mg Tab) 1 tab PO BID PRN PRN Reason: Constipation Sodium Chloride (Sodium Chloride 0.9% 10 Ml Syringe) 10 ml FLUSH ASDIRECTED PRN PRN Reason: Keep Vein Open Last Admin: 07/01/21 10:04 Dose: 10 ml Documented by: Sodium Chloride (Sodium Chloride 0.65% Nasal [place] 45 Ml Bottle) 1 ml STACEY Q2H PRN PRN Reason: Dryness Last Admin: 07/02/21 12:52 Dose: 2 spr Documented by: Discontinued Medications Dexamethasone (Dexamethasone 4 Mg/Ml Sdv) 6 mg IVPUSH ONETIME ONE Stop: 07/01/21 09:30 Last Admin: 07/01/21 10:03 Dose: 6 mg Documented by: Remdesivir 200 mg/ Sodium (Chloride) 250 mls @ 250 mls/hr IV ONETIME ONE Stop: 07/01/21 10:29 Last Admin: 07/01/21 10:07 Dose: 250 mls/hr Documented by: Remdesivir 100 mg/ Sodium (Chloride) 100 mls @ 100 mls/hr IV Q24H [facility] Stop: 07/05/21 09:59 Last Admin: 07/05/21 09:12 Dose: 100 mls/hr Documented by: Potassium Chloride (Potassium Chloride 20 Meq Tab.Er) 40 meq PO ONETIME ONE Stop: 07/04/21 08:31 Last Admin: 07/04/21 09:35 Dose: 40 meq Documented by: - Exam Quality Assessment: Supplemental Oxygen, DVT Prophylaxis General: Alert, Oriented, Cooperative, Mild Distress Lungs: Decreased Breath Sounds, Crackles. No: Rales, Rhonchi, Wheezing Cardiovascular: Regular Rate, Regular Rhythm, No Murmurs GI/Abdominal Exam: Soft, Non-Tender, No Organomegaly, No Distention Extremities: Non-Tender, No Pedal Edema - Patient Data Lab Results Last 24 hrs: Laboratory Results - last 24 hr 07/09/21 07/09/21 07/09/21 Range/Units 04:25 04:25 04:25 WBC 14.7 H (4.5-11.0) K/uL RBC 4.38 (3.30-5.50) M/uL Hgb 12.5 (12.0-15.0) g/dL Hct 37.8 (36.0-48.0) % MCV 86 (80-98) fL MCH 29 (27-31) pg MCHC 33 (32-36) % Plt Count 604 H (150-400) K/uL Add Manual Diff Yes Neutrophils % (Manual) 77 H (36-66) % Lymphocytes % (Manual) 13 L (24-44) % Monocytes % (Manual) 10 H (2-6) % D-Dimer, Quantitative 857.97 H (0.0-500.0) ng/mL Sodium 141 (140-148) mmol/L Potassium 4.3 (3.6-5.2) mmol/L Chloride 105 (100-108) mmol/L Carbon Dioxide 28 (21-32) mmol/L Anion Gap 8.0 (5.0-14.0) mmol/L BUN 26 H (7-18) mg/dL Creatinine 0.9 (0.6-1.0) mg/dL Est Cr Clr Drug Dosing 51.66 mL/min Estimated GFR (MDRD) > 60 (>60) Glucose 99 (74-106) mg/dL Calcium 7.8 L (8.5-10.1) mg/dL Total Bilirubin 0.5 D (0.2-1.0) mg/dL AST 11 L (15-37) U/L ALT 23 (12-78) U/L Alkaline Phosphatase 65 (46-116) U/L C-Reactive Protein (0.0-0.3) mg/dL Total Protein 5.6 L (6.4-8.2) g/dL Albumin 2.3 L (3.4-5.0) g/dL Globulin 3.3 (2.3-3.5) g/dL Albumin/Globulin Ratio 0.7 L (1.2-2.2) 07/09/21 Range/Units 04:25 WBC (4.5-11.0) K/uL RBC (3.30-5.50) M/uL Hgb (12.0-15.0) g/dL Hct (36.0-48.0) % MCV (80-98) fL MCH (27-31) pg MCHC (32-36) % Plt Count (150-400) K/uL Add Manual Diff Neutrophils % (Manual) (36-66) % Lymphocytes % (Manual) (24-44) % Monocytes % (Manual) (2-6) % D-Dimer, Quantitative (0.0-500.0) ng/mL Sodium (140-148) mmol/L Potassium (3.6-5.2) mmol/L Chloride (100-108) mmol/L Carbon Dioxide (21-32) mmol/L Anion Gap (5.0-14.0) mmol/L BUN (7-18) mg/dL Creatinine (0.6-1.0) mg/dL Est Cr Clr Drug Dosing mL/min Estimated GFR (MDRD) (>60) Glucose (74-106) mg/dL Calcium (8.5-10.1) mg/dL Total Bilirubin (0.2-1.0) mg/dL AST (15-37) U/L ALT (12-78) U/L Alkaline Phosphatase (46-116) U/L C-Reactive Protein 0.18 (0.0-0.3) mg/dL Total Protein (6.4-8.2) g/dL Albumin (3.4-5.0) g/dL Globulin (2.3-3.5) g/dL Albumin/Globulin Ratio (1.2-2.2) Result Diagrams: 07/09/21 04:25 07/09/21 04:25 Sepsis Event Note - Evaluation Sepsis Screening Result: Sepsis Risk - Focused Exam Vital Signs: Vital Signs Temp Pulse Pulse Resp BP BP Pulse Ox 07/09/21 15:00 97.0 F 83 18 105/54 L 94 L 07/09/21 11:00 97.6 F 90 18 161/79 H 88 L 07/09/21 09:05 84 141/86 H 07/09/21 09:00 92 L 07/09/21 07:52 95.0 F L 86 18 141/86 H 91 L 07/09/21 06:00 95 - Problem List Review Problem List Initiated/Reviewed/Updated: Yes - My Orders Last 24 Hours: My Active Orders 07/09/21 09:19 Evaluate for Home Oxygen [RT Evaluate for Home Oxygen] [RC] Click to Edit - Plan Plan:: ASSESSMENT AND PLAN - COVID-19 pneumonia-complicated by acute respiratory failure with hypoxia. Symptomatic on June 22. Previously unvaccinated. Mild improvement since yesterday, tolerating 4 to 5 L of oxygen via nasal cannula -Dexamethasone 6 mg x 10 days (day 9) -Remdesivir x5 days, completed -Enoxaparin every 24 hours -Supplement oxygen, wean as able -Symptomatic management of pain and cough -Isolation precautions through 07/12 (20 days) Maintenance issues - -DVT prophylaxis-enoxaparin -GI prophylaxis-not indicated -Nutrition-regular -Goss catheter-not indicated CODE STATUS -CPR okay, no intubation Disposition -I anticipate discharge home after the hospital stay Primary care physician -Dr Elvira Ponce
[2021-07-09] MEDS: Melatonin 3 MG Tab PO PRN (22:18)
[2021-07-09] MEDS: Benzonatate 100 MG Cap PO PRN (22:18)
[2021-07-10] MEDS: Pindolol 10 MG Tab PO SCH ×2 (08:38→21:36)
[2021-07-10] MEDS: Dexamethasone 4 MG/ML SDV IVPUSH SCH ×2 (08:39→15:04)
[2021-07-10] MEDS: guaiFENesin/Dextromethorphan 100-10 MG/5 ML Soln 10 ML Cup PO PRN ×3 (09:36→21:36)
[2021-07-10] MEDS: Benzonatate 100 MG Cap PO PRN ×2 (09:36→21:36)
[2021-07-10] MEDS: Acetaminophen 325 MG Tab PO PRN ×2 (09:36→15:18)
[2021-07-10] MEDS ORDERED: Dexamethasone 2 MG Tab PO ONE (15:04)
[2021-07-10] MEDS: Enoxaparin 40 MG/0.4 ML Syringe SUBCUT SCH (15:18)
--- NOTE | 2021-07-10 15:51 | PCM.PN ---
- General Info Date of Service: 07/10/21 Subjective Update: There were no acute events overnight. Patient continues to slowly improve. Shortness of breath is slowly decreasing. Energy is slowly increasing. Appetite has been acceptable. Sleeping fairly well. Does get winded and fatigued with activity but thinks this is a little better each day. Down to 4 L of oxygen now. - Patient Data Vitals - Most Recent: Last Vital Signs Temp 36.5 C 07/10/21 14:53 Pulse 87 07/10/21 14:53 Resp 16 07/10/21 14:53 BP 144/69 H 07/10/21 14:53 Pulse Ox 94 L 07/10/21 14:53 Weight - Most Recent: 85.729 kg I&O - Last 24 Hours: Intake & Output 07/10/21 07/10/21 07/10/21 06:59 14:59 22:59 Intake Total 940 540 Balance 940 540 Med Orders - Current: Current Medications Acetaminophen (Acetaminophen 325 Mg Tab) 650 mg PO Q4H PRN PRN Reason: Pain (Mild 1-3)/fever Last Admin: 07/10/21 15:18 Dose: 650 mg Documented by: Benzonatate (Benzonatate 100 Mg Cap) 100 mg PO TID PRN PRN Reason: Cough Last Admin: 07/10/21 09:36 Dose: 100 mg Documented by: Al Hydroxide/Mg Hydroxide 30 ml/ Diphenhydramine HCl 75 mg/Lidocaine HCl 30 ml 0 ml PO Q4H PRN PRN Reason: MOUTH CARE Last Admin: 07/05/21 20:28 Dose: 15 ml Documented by: Enoxaparin Sodium (Enoxaparin 40 Mg/0.4 Ml Syringe) 40 mg SUBCUT Q24H [facility] Last Admin: 07/10/21 15:18 Dose: 40 mg Documented by: Guaifenesin/Dextromethorphan (Guaifenesin/Dextromethorphan 100-10 Mg/5 Ml Soln 10 Ml Cup) 10 ml PO Q4H PRN PRN Reason: Cough Last Admin: 07/10/21 15:18 Dose: 10 ml Documented by: Lorazepam (Lorazepam 2 Mg/Ml Sdv) 0.5 mg IVPUSH Q4H PRN PRN Reason: Nausea/Vomiting Lorazepam (Lorazepam 0.5 Mg Tab) 0.5 mg PO Q4H PRN PRN Reason: Anxiety/sleep Last Admin: 07/08/21 20:41 Dose: 0.5 mg Documented by: Magnesium Hydroxide (Magnesium Hydroxide 400 Mg/5 Ml Susp 30 Ml Cup) 30 ml PO Q12H PRN PRN Reason: Constipation Melatonin (Melatonin 3 Mg Tab) 9 mg PO BEDTIME PRN PRN Reason: Sleep Last Admin: 07/09/21 22:18 Dose: 9 mg Documented by: Ondansetron HCl (Ondansetron 4 Mg/2 Ml Sdv) 4 mg IV Q6H PRN PRN Reason: Nausea/Vomiting Ondansetron HCl (Ondansetron 4 Mg Tab.Dis) 4 mg PO Q6H PRN PRN Reason: Nausea able to take PO Pindolol (Pindolol 10 Mg Tab) 10 mg PO BID [facility] Last Admin: 07/10/21 08:38 Dose: 10 mg Documented by: Senna/Docusate Sodium (Docusate Sodium/Sennosides 50-8.6 Mg Tab) 1 tab PO BID PRN PRN Reason: Constipation Sodium Chloride (Sodium Chloride 0.9% 10 Ml Syringe) 10 ml FLUSH ASDIRECTED PRN PRN Reason: Keep Vein Open Last Admin: 07/01/21 10:04 Dose: 10 ml Documented by: Sodium Chloride (Sodium Chloride 0.65% Nasal [place] 45 Ml Bottle) 1 ml STACEY Q2H PRN PRN Reason: Dryness Last Admin: 07/02/21 12:52 Dose: 2 spr Documented by: Discontinued Medications Dexamethasone (Dexamethasone 4 Mg/Ml Sdv) 6 mg IVPUSH ONETIME ONE Stop: 07/01/21 09:30 Last Admin: 07/01/21 10:03 Dose: 6 mg Documented by: Dexamethasone (Dexamethasone 4 Mg/Ml Sdv) 6 mg IVPUSH Q24H [facility] Stop: 07/10/21 09:01 Last Admin: 07/10/21 15:04 Dose: Not Given Documented by: Dexamethasone (Dexamethasone 2 Mg Tab) 6 mg PO ONETIME ONE Stop: 07/10/21 15:05 Remdesivir 200 mg/ Sodium (Chloride) 250 mls @ 250 mls/hr IV ONETIME ONE Stop: 07/01/21 10:29 Last Admin: 07/01/21 10:07 Dose: 250 mls/hr Documented by: Remdesivir 100 mg/ Sodium (Chloride) 100 mls @ 100 mls/hr IV Q24H [facility] Stop: 07/05/21 09:59 Last Admin: 07/05/21 09:12 Dose: 100 mls/hr Documented by: Potassium Chloride (Potassium Chloride 20 Meq Tab.Er) 40 meq PO ONETIME ONE Stop: 07/04/21 08:31 Last Admin: 07/04/21 09:35 Dose: 40 meq Documented by: - Exam Quality Assessment: Supplemental Oxygen General: Alert, Oriented, Cooperative, No Acute Distress Lungs: Normal Respiratory Effort. No: Wheezing GI/Abdominal Exam: Soft, No Distention Extremities: No Pedal Edema. No: Increased Warmth Psy/Mental Status: Alert, Normal Affect - Patient Data Result Diagrams: 07/09/21 04:25 07/09/21 04:25 Sepsis Event Note - Evaluation Sepsis Screening Result: No Definite Risk - Focused Exam Vital Signs: Vital Signs Temp Temp Pulse Pulse Resp BP BP 07/10/21 14:53 36.5 C 87 16 144/69 H 07/10/21 11:33 36.3 C 90 16 120/62 07/10/21 10:00 07/10/21 08:38 82 132/72 07/10/21 08:30 07/10/21 07:57 35.8 C L 82 16 133/72 07/10/21 04:00 35.3 C L 82 18 115/63 Pulse Ox 07/10/21 14:53 94 L 07/10/21 11:33 92 L 07/10/21 10:00 90 L 07/10/21 08:38 07/10/21 08:30 90 L 07/10/21 07:57 93 L 07/10/21 04:00 92 L - Problem List & Annotations (1) Pneumonia due to coronavirus disease 2019 SNOMED Code(s): 556150569724164850 Code(s): U07.1 - COVID-19; J12.82 - PNEUMONIA DUE TO CORONAVIRUS DISEASE 2019 Status: Acute Current Visit: Yes (2) Acute respiratory failure due to COVID-19 SNOMED Code(s): 386542455 Code(s): U07.1 - COVID-19; J96.00 - ACUTE RESPIRATORY FAILURE, UNSP W HYPOXIA OR HYPERCAPNIA Status: Acute Current Visit: Yes (3) Obesity (BMI 30.0-34.9) SNOMED Code(s): 001918962614455 Code(s): E66.9 - OBESITY, UNSPECIFIED Status: Chronic Current Visit: Yes - Problem List Review Problem List Initiated/Reviewed/Updated: Yes - Plan Plan:: ASSESSMENT AND PLAN - COVID-19 pneumonia-complicated by acute respiratory failure with hypoxia. Symptomatic on June 22. Previously unvaccinated. Slow but steady im provement. D-dimer and CRP have been decreasing. Down to 4 L of oxygen today. -Dexamethasone 6 mg x 10 days (day 10) -Remdesivir x5 days, completed -Enoxaparin every 24 hours -Supplement oxygen, wean as able -Symptomatic management of pain and cough -Isolation precautions through 07/12 (20 days) Maintenance issues - -DVT prophylaxis-enoxaparin -GI prophylaxis-not indicated -Nutrition-regular -Goss catheter-not indicated CODE STATUS -CPR okay, no intubation Disposition -I anticipate discharge home after the hospital stay Primary care physician -Dr Elvira Ponce
[2021-07-10] MEDS: Melatonin 3 MG Tab PO PRN (21:36)
[2021-07-11] MEDS: Pindolol 10 MG Tab PO SCH ×2 (09:53→21:44)
--- NOTE | 2021-07-11 11:37 | PCM.PN ---
- General Info Date of Service: 07/11/21 Subjective Update: Ms. Garcia has been stable since yesterday, continues to require 4 L/min of oxygen via nasal cannula. She has been able to be more active, moving about her room with less shortness of breath. Functional Status: Reports: Tolerating Diet, Urinating - Review of Systems General: Reports: Weakness, Fatigue. Denies: Fever, Chills Pulmonary: Reports: Shortness of Breath. Denies: Pleuritic Chest Pain, Cough, Sputum, Hemoptysis, Wheezing Cardiovascular: Reports: Dyspnea on Exertion. Denies: Chest Pain, Palpitations, Orthopnea, PND, Edema, Lightheadedness Gastrointestinal: Reports: No Symptoms Genitourinary: Reports: No Symptoms - Patient Data Vitals - Most Recent: Last Vital Signs Temp 95.6 F L 07/11/21 08:00 Pulse 86 07/11/21 09:53 Resp 16 07/11/21 08:00 BP 157/75 H 07/11/21 09:53 Pulse Ox 95 07/11/21 10:00 Weight - Most Recent: 189 lb I&O - Last 24 Hours: Intake & Output 07/10/21 07/11/21 07/11/21 22:59 06:59 14:59 Intake Total 1660 200 Balance 1660 200 Med Orders - Current: Current Medications Acetaminophen (Acetaminophen 325 Mg Tab) 650 mg PO Q4H PRN PRN Reason: Pain (Mild 1-3)/fever Last Admin: 07/10/21 15:18 Dose: 650 mg Documented by: Benzonatate (Benzonatate 100 Mg Cap) 100 mg PO TID PRN PRN Reason: Cough Last Admin: 07/10/21 21:36 Dose: 100 mg Documented by: Al Hydroxide/Mg Hydroxide 30 ml/ Diphenhydramine HCl 75 mg/Lidocaine HCl 30 ml 0 ml PO Q4H PRN PRN Reason: MOUTH CARE Last Admin: 07/05/21 20:28 Dose: 15 ml Documented by: Enoxaparin Sodium (Enoxaparin 40 Mg/0.4 Ml Syringe) 40 mg SUBCUT Q24H [facility] Last Admin: 07/10/21 15:18 Dose: 40 mg Documented by: Guaifenesin/Dextromethorphan (Guaifenesin/Dextromethorphan 100-10 Mg/5 Ml Soln 10 Ml Cup) 10 ml PO Q4H PRN PRN Reason: Cough Last Admin: 07/10/21 21:36 Dose: 10 ml Documented by: Lorazepam (Lorazepam 2 Mg/Ml Sdv) 0.5 mg IVPUSH Q4H PRN PRN Reason: Nausea/Vomiting Lorazepam (Lorazepam 0.5 Mg Tab) 0.5 mg PO Q4H PRN PRN Reason: Anxiety/sleep Last Admin: 07/08/21 20:41 Dose: 0.5 mg Documented by: Magnesium Hydroxide (Magnesium Hydroxide 400 Mg/5 Ml Susp 30 Ml Cup) 30 ml PO Q12H PRN PRN Reason: Constipation Melatonin (Melatonin 3 Mg Tab) 9 mg PO BEDTIME PRN PRN Reason: Sleep Last Admin: 07/10/21 21:36 Dose: 9 mg Documented by: Ondansetron HCl (Ondansetron 4 Mg/2 Ml Sdv) 4 mg IV Q6H PRN PRN Reason: Nausea/Vomiting Ondansetron HCl (Ondansetron 4 Mg Tab.Dis) 4 mg PO Q6H PRN PRN Reason: Nausea able to take PO Pindolol (Pindolol 10 Mg Tab) 10 mg PO BID [facility] Last Admin: 07/11/21 09:53 Dose: 10 mg Documented by: Senna/Docusate Sodium (Docusate Sodium/Sennosides 50-8.6 Mg Tab) 1 tab PO BID PRN PRN Reason: Constipation Sodium Chloride (Sodium Chloride 0.9% 10 Ml Syringe) 10 ml FLUSH ASDIRECTED PRN PRN Reason: Keep Vein Open Last Admin: 07/01/21 10:04 Dose: 10 ml Documented by: Sodium Chloride (Sodium Chloride 0.65% Nasal [place] 45 Ml Bottle) 1 ml STACEY Q2H PRN PRN Reason: Dryness Last Admin: 07/02/21 12:52 Dose: 2 spr Documented by: Discontinued Medications Dexamethasone (Dexamethasone 4 Mg/Ml Sdv) 6 mg IVPUSH ONETIME ONE Stop: 07/01/21 09:30 Last Admin: 07/01/21 10:03 Dose: 6 mg Documented by: Dexamethasone (Dexamethasone 4 Mg/Ml Sdv) 6 mg IVPUSH Q24H [facility] Stop: 07/10/21 09:01 Last Admin: 07/10/21 15:04 Dose: Not Given Documented by: Dexamethasone (Dexamethasone 2 Mg Tab) 6 mg PO ONETIME ONE Stop: 07/10/21 15:05 Last Admin: 07/10/21 15:49 Dose: 6 mg Documented by: Remdesivir 200 mg/ Sodium (Chloride) 250 mls @ 250 mls/hr IV ONETIME ONE Stop: 07/01/21 10:29 Last Admin: 07/01/21 10:07 Dose: 250 mls/hr Documented by: Remdesivir 100 mg/ Sodium (Chloride) 100 mls @ 100 mls/hr IV Q24H [facility] Stop: 07/05/21 09:59 Last Admin: 07/05/21 09:12 Dose: 100 mls/hr Documented by: Potassium Chloride (Potassium Chloride 20 Meq Tab.Er) 40 meq PO ONETIME ONE Stop: 07/04/21 08:31 Last Admin: 07/04/21 09:35 Dose: 40 meq Documented by: - Exam Quality Assessment: Supplemental Oxygen, DVT Prophylaxis General: Alert, Oriented, Cooperative, Mild Distress Lungs: Decreased Breath Sounds, Crackles. No: Rales, Rhonchi, Wheezing Cardiovascular: Regular Rate, Regular Rhythm, No Murmurs GI/Abdominal Exam: Soft, Non-Tender, No Organomegaly, No Distention Extremities: Non-Tender, No Pedal Edema - Patient Data Result Diagrams: 07/09/21 04:25 07/09/21 04:25 Sepsis Event Note - Evaluation Sepsis Screening Result: No Definite Risk - Focused Exam Vital Signs: Vital Signs Temp Pulse Pulse Resp BP BP Pulse Ox 07/11/21 10:00 95 07/11/21 09:53 86 157/75 H 07/11/21 08:00 95.6 F L 86 16 157/75 H 91 L 07/11/21 02:58 95.5 F L 89 16 127/76 92 L Pulse Ox 07/11/21 10:00 07/11/21 09:53 07/11/21 08:00 93 L 07/11/21 02:58 - Problem List Review Problem List Initiated/Reviewed/Updated: Yes - Plan Plan:: ASSESSMENT AND PLAN - COVID-19 pneumonia-complicated by acute respiratory failure with hypoxia. Symptomatic on June 22. Previously unvaccinated. Slow but steady improvement. D-dimer and CRP have been decreasing. Remains on 4 L of her oxygen per minute via nasal cannula -Dexamethasone taper, 4 mg daily -Remdesivir x5 days, completed -Enoxaparin every 24 hours -Supplement oxygen, wean as able -Symptomatic management of pain and cough -Isolation precautions through 07/12 (20 days) Maintenance issues - -DVT prophylaxis-enoxaparin -GI prophylaxis-not indicated -Nutrition-regular -Goss catheter-not indicated CODE STATUS -CPR okay, no intubation Disposition -I anticipate discharge home after the hospital stay Primary care physician -Dr Elvira Ponce
[2021-07-11] MEDS: Enoxaparin 40 MG/0.4 ML Syringe SUBCUT SCH (14:21)
[2021-07-11] MEDS: Magnesium Oxide 400 MG Tab PO SCH ×2 (14:21→21:44)
[2021-07-11] MEDS: Melatonin 3 MG Tab PO PRN (21:44)
[2021-07-12] MEDS: Magnesium Oxide 400 MG Tab PO SCH (08:18)
[2021-07-12] MEDS: Pindolol 10 MG Tab PO SCH (08:18)
--- NOTE | 2021-07-12 10:44 | PCM.DCSUM1 ---
Discharge Summary - Hospital Course Brief History: Ms. Garcia is a 70-year-old woman who was admitted through the emergency department with weakness, shortness of breath, hypoxia, cough secondary to COVID-19 infection with underlying pneumonia. - Discharge Data Discharge Date: 07/12/21 Discharge Disposition: Home, Self-Care 01 Condition: Fair - Referral to Home Health Primary Care Physician: PCP None - Discharge Diagnosis/Problem(s) (1) COVID-19 SNOMED Code(s): 327838198 ICD Code: U07.1 - COVID-19 Status: Acute Current Visit: Yes (2) Hypoxia SNOMED Code(s): 335590860 ICD Code: R09.02 - HYPOXEMIA Status: Acute Current Visit: Yes (3) Pneumonia due to coronavirus disease 2018 SNOMED Code(s): 194782402272685366 ICD Code: U07.1 - COVID-19; J12.82 - PNEUMONIA DUE TO CORONAVIRUS DISEASE 2018 Status: Acute Current Visit: Yes (4) Acute respiratory failure due to COVID-19 SNOMED Code(s): 455607865 ICD Code: U07.1 - COVID-19; J96.00 - ACUTE RESPIRATORY FAILURE, UNSP W HYPOXIA OR HYPERCAPNIA Status: Acute Current Visit: Yes - Patient Summary/Data Hospital Course: Ms. Garcia is a 70-year-old woman who presented to the emergency room with about 9 days of worsening cough, shortness of breath, weakness, muscle aches, headaches and poor appetite. She thinks her symptoms started about June 22. She was seen in the clinic and tested positive for Covid so monoclonal antibody therapy was ordered and she did complete this on June 29. She did not feel well at the time of the infusion and was seen in the emergency room. She was not hypoxic so she was discharged home. Since that time she has had progression of her symptoms. Work-up in the emergency room suggested Covid pneumonia with acute respiratory failure and hypoxia. She has mild elevation of D-dimer and CRP. Chest x-ray shows only mild lower lung infiltrates. On admission she was hypoxic and requiring 3 to 4 L of oxygen per minute via nasal cannula. She was started on therapy with dexamethasone and remdesivir. Oxygen requirements did increase during hospital stay but never were higher than 6 L/min via nasal cannula. She completed her course of remdesivir and remained on dexamethasone throughout her hospital stay. She gradually improved and by the time of discharge was down to 2 L of oxygen via nasal cannula. She had less desaturation with activity and improvement in her overall strength and appetite. She will be discharged home on a tapering dose of dexamethasone. She did qualify for home oxygen prior to discharge. On 11 July she had an oxygen saturation of 88% while on room air. She will be discharged to home on home oxygen at 2 L/min via nasal cannula. Follow-up appointment will be scheduled with her primary care provider within 1 week. Activity will be as tolerated and she will resume her usual diet. - Patient Instructions Diet: Usual Diet as Tolerated Activity: As Tolerated Other/Special Instructions: Please arrange for home oxygen therapy 2 L/min via nasal cannula. Please schedule follow-up appointment with primary care provider within 1 week. - Discharge Plan *PRESCRIPTION DRUG MONITORING PROGRAM REVIEWED*: Not Applicable *COPY OF PRESCRIPTION DRUG MONITORING REPORT IN PATIENT GARRETT: Not Applicable Prescriptions/Med Rec: dexAMETHasone [Dexamethasone] 4 mg PO DAILY #14 tablet Home Medications: Home Meds pindoloL [Pindolol] 10 mg PO BID 07/01/21 [History] dexAMETHasone [Dexamethasone] 4 mg PO DAILY #14 tablet 07/12/21 [Rx] Patient Handouts: Hypoxia, Fall Prevention in the Home, Adult, [id number], COVID-19 Referrals: Elvira Ponce DO [Physician] - 07/23/21 1:40 pm (Please arrive 15 minutes early to register for your appointment.) - Discharge Summary/Plan Comment DC Time >30 min.: No Total # of Minutes for Discharge Time: 15 - Patient Data Vitals - Most Recent: Last Vital Signs Temp 97.1 F 07/12/21 07:00 Pulse 82 07/12/21 08:18 Resp 18 07/12/21 07:00 BP 134/89 07/12/21 08:18 Pulse Ox 94 L 07/12/21 07:00 Weight - Most Recent: 189 lb I&O - Last 24 hours: Intake & Output 07/11/21 07/12/21 07/12/21 22:59 06:59 14:59 Intake Total 1800 150 Balance 1800 150 Med Orders - Current: Current Medications Acetaminophen (Acetaminophen 325 Mg Tab) 650 mg PO Q4H PRN PRN Reason: Pain (Mild 1-3)/fever Last Admin: 07/10/21 15:18 Dose: 650 mg Documented by: Benzonatate (Benzonatate 100 Mg Cap) 100 mg PO TID PRN PRN Reason: Cough Last Admin: 07/10/21 21:36 Dose: 100 mg Documented by: Al Hydroxide/Mg Hydroxide 30 ml/ Diphenhydramine HCl 75 mg/Lidocaine HCl 30 ml 0 ml PO Q4H PRN PRN Reason: MOUTH CARE Last Admin: 07/05/21 20:28 Dose: 15 ml Documented by: Enoxaparin Sodium (Enoxaparin 40 Mg/0.4 Ml Syringe) 40 mg SUBCUT Q24H [facility] Last Admin: 07/11/21 14:21 Dose: 40 mg Documented by: Guaifenesin/Dextromethorphan (Guaifenesin/Dextromethorphan 100-10 Mg/5 Ml Soln 10 Ml Cup) 10 ml PO Q4H PRN PRN Reason: Cough Last Admin: 07/10/21 21:36 Dose: 10 ml Documented by: Lorazepam (Lorazepam 2 Mg/Ml Sdv) 0.5 mg IVPUSH Q4H PRN PRN Reason: Nausea/Vomiting Lorazepam (Lorazepam 0.5 Mg Tab) 0.5 mg PO Q4H PRN PRN Reason: Anxiety/sleep Last Admin: 07/08/21 20:41 Dose: 0.5 mg Documented by: Magnesium Hydroxide (Magnesium Hydroxide 400 Mg/5 Ml Susp 30 Ml Cup) 30 ml PO Q12H PRN PRN Reason: Constipation Magnesium Oxide (Magnesium Oxide 400 Mg Tab) 400 mg PO BID [facility] Last Admin: 07/12/21 08:18 Dose: 400 mg Documented by: Melatonin (Melatonin 3 Mg Tab) 9 mg PO BEDTIME PRN PRN Reason: Sleep Last Admin: 07/11/21 21:44 Dose: 9 mg Documented by: Ondansetron HCl (Ondansetron 4 Mg/2 Ml Sdv) 4 mg IV Q6H PRN PRN Reason: Nausea/Vomiting Ondansetron HCl (Ondansetron 4 Mg Tab.Dis) 4 mg PO Q6H PRN PRN Reason: Nausea able to take PO Pindolol (Pindolol 10 Mg Tab) 10 mg PO BID [facility] Last Admin: 07/12/21 08:18 Dose: 10 mg Documented by: Senna/Docusate Sodium (Docusate Sodium/Sennosides 50-8.6 Mg Tab) 1 tab PO BID PRN PRN Reason: Constipation Sodium Chloride (Sodium Chloride 0.9% 10 Ml Syringe) 10 ml FLUSH ASDIRECTED PRN PRN Reason: Keep Vein Open Last Admin: 07/01/21 10:04 Dose: 10 ml Documented by: Sodium Chloride (Sodium Chloride 0.65% Nasal [place] 45 Ml Bottle) 1 ml STACEY Q2H PRN PRN Reason: Dryness Last Admin: 07/02/21 12:52 Dose: 2 spr Documented by: Discontinued Medications Dexamethasone (Dexamethasone 4 Mg/Ml Sdv) 6 mg IVPUSH ONETIME ONE Stop: 07/01/21 09:30 Last Admin: 07/01/21 10:03 Dose: 6 mg Documented by: Dexamethasone (Dexamethasone 4 Mg/Ml Sdv) 6 mg IVPUSH Q24H [facility] Stop: 07/10/21 09:01 Last Admin: 07/10/21 15:04 Dose: Not Given Documented by: Dexamethasone (Dexamethasone 2 Mg Tab) 6 mg PO ONETIME ONE Stop: 07/10/21 15:05 Last Admin: 07/10/21 15:49 Dose: 6 mg Documented by: Remdesivir 200 mg/ Sodium (Chloride) 250 mls @ 250 mls/hr IV ONETIME ONE Stop: 07/01/21 10:29 Last Admin: 07/01/21 10:07 Dose: 250 mls/hr Documented by: Remdesivir 100 mg/ Sodium (Chloride) 100 mls @ 100 mls/hr IV Q24H [facility] Stop: 07/05/21 09:59 Last Admin: 07/05/21 09:12 Dose: 100 mls/hr Documented by: Potassium Chloride (Potassium Chloride 20 Meq Tab.Er) 40 meq PO ONETIME ONE Stop: 07/04/21 08:31 Last Admin: 07/04/21 09:35 Dose: 40 meq Documented by: - Exam Quality Assessment: Reports: Supplemental Oxygen General: Reports: Alert, Oriented, Cooperative, Mild Distress Lungs: Reports: Decreased Breath Sounds, Crackles, Wheezing. Denies: Rales, Rhonchi Cardiovascular: Reports: Regular Rate, Regular Rhythm, No Murmurs GI/Abdominal Exam: Soft, Non-Tender, No Organomegaly, No Distention Extremities: Non-Tender, No Pedal Edema
== END 2021-07-12 12:45 | disposition home or self-care (01) | DRG 177 ==
LOC: JP.ED 08:30 → JP.2SS 12:51
PROVIDERS: ADMIT Internal Medicine; ATTEND Hospitalist
PROC: 8E0ZXY6 Isolation (ICD-10-PCS; principal; 2021-07-01)
PROC: XW033E5 Introduction of Remdesivir Anti-infective into Peripheral Vein, Percutaneous Approach, New Technology Group 5 (ICD-10-PCS; 2021-07-01)
PROC: 3E0333Z Introduction of Anti-inflammatory into Peripheral Vein, Percutaneous Approach (ICD-10-PCS; 2021-07-01)
PROC: 3E0DX3Z Introduction of Anti-inflammatory into Mouth and Pharynx, External Approach (ICD-10-PCS; 2021-07-10)
DX: U07.1 COVID-19 (principal); R09.02 Hypoxemia; J12.82 Pneumonia due to coronavirus disease 2019; J96.01 Acute respiratory failure with hypoxia; I10 Essential (primary) hypertension; F41.9 Anxiety disorder, unspecified; F32.A Depression, unspecified; E66.9 Obesity, unspecified; Z88.8 Allergy status to other drugs, medicaments and biological substances; Z79.899 Other long term (current) drug therapy; Z90.49 Acquired absence of other specified parts of digestive tract; Z68.32 Body mass index [BMI] 32.0-32.9, adult
CPT/HCPCS: 36415; 71045 ×2; 80048; 80076; 81001; 85027; 85379; 86140; 96365; 96375; 99285; J1100; J7050; 80053; 85025; 94762; A9270-GY; J1650; J8540

== ENCOUNTER 2021-08-17 18:50 | Emergency (ER) | payer MEDICARE ==
[2021-08-17] MEDS ORDERED: LORazepam 1 MG Tab PO ONE (19:23)
== END 2021-08-17 20:17 | disposition home or self-care (01) ==
LOC: JP.ED 18:50
DX: I65.21 Occlusion and stenosis of right carotid artery (principal); E11.9 Type 2 diabetes mellitus without complications; I10 Essential (primary) hypertension; Z88.8 Allergy status to other drugs, medicaments and biological substances; Z79.899 Other long term (current) drug therapy; Z90.49 Acquired absence of other specified parts of digestive tract
CPT/HCPCS: 99284; A9270

== ENCOUNTER 2021-08-19 10:05 | Emergency (ER) | payer MEDICARE | END 2021-08-19 11:10 | disposition home or self-care (01) | LOC: JP.ED 10:05 | DX: F41.9 Anxiety disorder, unspecified (principal); R20.2 Paresthesia of skin; I10 Essential (primary) hypertension; E11.9 Type 2 diabetes mellitus without complications; Z86.16 Personal history of COVID-19; Z86.73 Personal history of transient ischemic attack (TIA), and cerebral infarction without residual deficits; Z88.8 Allergy status to other drugs, medicaments and biological substances; Z79.82 Long term (current) use of aspirin; Z79.02 Long term (current) use of antithrombotics/antiplatelets | CPT/HCPCS: 99283 ==

== ENCOUNTER 2021-08-20 23:57 | Emergency (ER) | payer MEDICARE ==
[2021-08-21] MEDS ORDERED: LORazepam 0.5 MG Tab PO ONE (00:33)
== END 2021-08-21 02:12 | disposition home or self-care (01) ==
LOC: JP.ED 23:57
DX: F41.9 Anxiety disorder, unspecified (principal); E78.00 Pure hypercholesterolemia, unspecified; I10 Essential (primary) hypertension; E11.9 Type 2 diabetes mellitus without complications; Z86.73 Personal history of transient ischemic attack (TIA), and cerebral infarction without residual deficits; Z79.82 Long term (current) use of aspirin; Z79.02 Long term (current) use of antithrombotics/antiplatelets; Z79.899 Other long term (current) drug therapy
CPT/HCPCS: 99283; A9270

== ENCOUNTER 2021-08-27 17:24 | Emergency (ER) | payer MEDICARE ==
[2021-08-27] MEDS ORDERED: LORazepam 2 MG/ML SDV IM ONE (18:50)
[2021-08-27] MEDS ORDERED: LORazepam 2 MG/ML SDV ONE (22:57)
== END 2021-08-27 23:12 | disposition other institution (70) ==
LOC: JP.ED 17:24
DX: I65.21 Occlusion and stenosis of right carotid artery (principal); E78.00 Pure hypercholesterolemia, unspecified; I10 Essential (primary) hypertension; E11.9 Type 2 diabetes mellitus without complications; Z87.891 Personal history of nicotine dependence; Z86.16 Personal history of COVID-19; Z86.73 Personal history of transient ischemic attack (TIA), and cerebral infarction without residual deficits; Z88.8 Allergy status to other drugs, medicaments and biological substances; Z79.82 Long term (current) use of aspirin; Z79.02 Long term (current) use of antithrombotics/antiplatelets
CPT/HCPCS: 96372; 99285; J2060

== ENCOUNTER 2021-10-27 13:09 | Emergency (ER) | payer MEDICARE ==
[2021-10-27] MEDS ORDERED: LORazepam 0.5 MG Tab PO ONE (13:34)
[2021-10-27] MEDS ORDERED: Metoprolol Succinate 25 MG Tab.ER PO ONE (14:58)
[2021-10-27] MEDS ORDERED: Verapamil 120 MG Tab.ER PO SCH (15:00)
[2021-10-27] MEDS ORDERED: Nitroglycerin 0.4 MG Tab.SL SL ONE (15:59)
== END 2021-10-27 17:05 | disposition home or self-care (01) ==
LOC: JP.ED 13:09
DX: I10 Essential (primary) hypertension (principal); F41.9 Anxiety disorder, unspecified; F32.A Depression, unspecified; E11.9 Type 2 diabetes mellitus without complications; Z88.8 Allergy status to other drugs, medicaments and biological substances
CPT/HCPCS: 36415; 70450; 70450-26; 80053; 83605; 84484; 85025; 93005; 93010; 99283; 99284-25; A9270-GY

== ENCOUNTER 2021-11-16 10:21 | Emergency (ER) | payer MEDICARE ==
[2021-11-16] MEDS ORDERED: Sodium Chloride 0.9% 10 ML Syringe FLUSH PRN (11:09)
[2021-11-16] MEDS ORDERED: Sodium Chloride 0.9% 1,000 ML IV SCH (11:15)
[2021-11-16] MEDS ORDERED: Sodium Chloride 0.9% 50 ML IV ONE (11:21)
[2021-11-16] MEDS ORDERED: Iopamidol 755 Mg/ML 100 ML Bottle IV SCH (11:30)
[2021-11-16 11:39] LABS: HEMOGLOBIN A1C 6.3 % (4.5-6.2)
[2021-11-16 11:49] LABS: TROPONIN I HIGH SENSITIVITY 7.4 pg/mL (<=60.3)
== END 2021-11-16 13:09 | disposition home or self-care (01) ==
LOC: JP.ED 10:21
DX: H53.9 Unspecified visual disturbance (principal); I63.9 Cerebral infarction, unspecified; Z79.82 Long term (current) use of aspirin; E78.00 Pure hypercholesterolemia, unspecified; I10 Essential (primary) hypertension; E11.9 Type 2 diabetes mellitus without complications; Z79.899 Other long term (current) drug therapy
CPT/HCPCS: 36415; 70450; 70496; 70498; 80053; 83036; 83605; 84484; 85025; 93005; J3490; J7030; Q9967; 93010; 99282; 99284-25

== ENCOUNTER 2022-01-15 23:39 | Emergency (ER) | payer MEDICARE ==
[2022-01-16 00:23] LABS: ESTIMATED GFR 54 mL/min (>60)
== END 2022-01-16 01:25 | disposition home or self-care (01) ==
LOC: JP.ED 23:39
DX: F41.9 Anxiety disorder, unspecified (principal); F43.0 Acute stress reaction; I10 Essential (primary) hypertension; E11.9 Type 2 diabetes mellitus without complications; Z88.8 Allergy status to other drugs, medicaments and biological substances; Z86.73 Personal history of transient ischemic attack (TIA), and cerebral infarction without residual deficits; Z79.02 Long term (current) use of antithrombotics/antiplatelets; Z79.82 Long term (current) use of aspirin; Z79.899 Other long term (current) drug therapy
CPT/HCPCS: 36415; 70450; 80053; 80307; 85025; 85610; 85730; 93005; 93010; 99283; 99284-25

== ENCOUNTER 2022-01-22 17:47 | Emergency (ER) | payer MEDICARE ==
[2022-01-22] MEDS ORDERED: Sodium Chloride 0.9% 10 ML Syringe FLUSH PRN (18:39)
[2022-01-22 19:30] LABS: ESTIMATED GFR 61 mL/min (>60)
== END 2022-01-22 19:53 | disposition home or self-care (01) ==
LOC: JP.ED 17:47
DX: U07.1 COVID-19 (principal); E11.9 Type 2 diabetes mellitus without complications; I10 Essential (primary) hypertension; E78.00 Pure hypercholesterolemia, unspecified; Z88.8 Allergy status to other drugs, medicaments and biological substances; Z86.73 Personal history of transient ischemic attack (TIA), and cerebral infarction without residual deficits; Z79.82 Long term (current) use of aspirin; Z79.02 Long term (current) use of antithrombotics/antiplatelets; Z79.899 Other long term (current) drug therapy
CPT/HCPCS: 36415; 71045; 80053; 81001; 82728; 83605; 83615; 84145; 85025; 85379; 86140; 99285; U0002; 99281

== ENCOUNTER 2022-02-25 16:53 | Emergency (ER) | payer MEDICARE ==
[2022-02-25] MEDS ORDERED: Sodium Chloride 0.9% 10 ML Syringe FLUSH PRN (19:08)
[2022-02-25] MEDS ORDERED: Iopamidol 612 MG/ML 100 ML Bottle IV PRN (19:45)
[2022-02-25] MEDS ORDERED: Sodium Chloride 0.9% 50 ML IV SCH (19:45)
[2022-02-25 19:49] LABS: HEMOGLOBIN A1C 6.2 % (4.5-6.2)
[2022-02-25 19:55] LABS: ESTIMATED GFR 49 mL/min (>60)
== END 2022-02-25 22:33 | disposition home or self-care (01) ==
LOC: JP.ED 16:53
DX: H53.2 Diplopia (principal); R55 Syncope and collapse; R42 Dizziness and giddiness; E86.0 Dehydration; R14.0 Abdominal distension (gaseous); E11.22 Type 2 diabetes mellitus with diabetic chronic kidney disease; E78.00 Pure hypercholesterolemia, unspecified; I12.9 Hypertensive chronic kidney disease with stage 1 through stage 4 chronic kidney disease, or unspecified chronic kidney disease; N18.31 Chronic kidney disease, stage 3a; Z86.16 Personal history of COVID-19; Z88.8 Allergy status to other drugs, medicaments and biological substances; Z79.02 Long term (current) use of antithrombotics/antiplatelets; Z79.899 Other long term (current) drug therapy; Z20.822 Contact with and (suspected) exposure to COVID-19
CPT/HCPCS: 36415; 74177; 80053; 81001; 83036; 83605; 85025; 86140; 99285; J3490; Q9967; U0002

== ENCOUNTER 2022-05-04 11:15 | Emergency (ER) | payer MEDICARE | END 2022-05-04 13:40 | disposition home or self-care (01) | LOC: JP.ED 11:15 | DX: I10 Essential (primary) hypertension (principal); E11.9 Type 2 diabetes mellitus without complications; E78.00 Pure hypercholesterolemia, unspecified; Z88.8 Allergy status to other drugs, medicaments and biological substances; Z79.899 Other long term (current) drug therapy; Z86.73 Personal history of transient ischemic attack (TIA), and cerebral infarction without residual deficits; Z86.16 Personal history of COVID-19 | CPT/HCPCS: 99283 ==

== ENCOUNTER 2022-05-16 17:27 | Emergency (ER) | payer MEDICARE ==
[2022-05-16 19:01] LABS: ESTIMATED GFR 61 mL/min (>60); TROPONIN I HIGH SENSITIVITY 5.2 pg/mL (<=60.3)
== END 2022-05-16 19:34 | disposition home or self-care (01) ==
LOC: JP.ED 17:27
DX: R04.0 Epistaxis (principal); F41.9 Anxiety disorder, unspecified; I10 Essential (primary) hypertension; E11.9 Type 2 diabetes mellitus without complications; Z86.16 Personal history of COVID-19; Z88.8 Allergy status to other drugs, medicaments and biological substances; Z79.02 Long term (current) use of antithrombotics/antiplatelets; Z79.899 Other long term (current) drug therapy
CPT/HCPCS: 36415; 80053; 84484; 85025; 99283

== ENCOUNTER 2022-06-01 08:47 | Emergency (ER) | payer MEDICARE ==
[2022-06-01 10:44] LABS: CORONAVIRUS COVID-19 NAA NEGATIVE (NEGATIVE)
== END 2022-06-01 11:29 | disposition home or self-care (01) ==
LOC: JP.ED 08:47
DX: H81.12 Benign paroxysmal vertigo, left ear (principal); H26.9 Unspecified cataract; R20.2 Paresthesia of skin; I10 Essential (primary) hypertension; E11.9 Type 2 diabetes mellitus without complications; Z20.822 Contact with and (suspected) exposure to COVID-19; Z88.8 Allergy status to other drugs, medicaments and biological substances; Z79.899 Other long term (current) drug therapy; Z90.49 Acquired absence of other specified parts of digestive tract
CPT/HCPCS: 0241U; 36415; 70450; 80048; 84443; 85651; 99284

== ENCOUNTER 2022-06-07 18:12 | Emergency (ER) | payer MEDICARE ==
[2022-06-07] MEDS ORDERED: LORazepam 1 MG Tab PO ONE (19:07)
== END 2022-06-07 20:20 | disposition home or self-care (01) ==
LOC: JP.ED 18:12
DX: I10 Essential (primary) hypertension (principal); E78.00 Pure hypercholesterolemia, unspecified; E11.9 Type 2 diabetes mellitus without complications; Z87.891 Personal history of nicotine dependence; Z88.8 Allergy status to other drugs, medicaments and biological substances; Z79.02 Long term (current) use of antithrombotics/antiplatelets; Z79.899 Other long term (current) drug therapy
CPT/HCPCS: 99283; A9270

== ENCOUNTER 2022-06-21 13:58 | Emergency (ER) | payer MEDICARE ==
[2022-06-21] MEDS ORDERED: Sodium Chloride 0.9% 1,000 ML IV SCH (15:30)
== END 2022-06-21 16:08 | disposition home or self-care (01) ==
LOC: JP.ED 13:58
DX: I65.29 Occlusion and stenosis of unspecified carotid artery (principal); I95.89 Other hypotension; E78.00 Pure hypercholesterolemia, unspecified; I12.9 Hypertensive chronic kidney disease with stage 1 through stage 4 chronic kidney disease, or unspecified chronic kidney disease; N18.31 Chronic kidney disease, stage 3a; E11.9 Type 2 diabetes mellitus without complications; Z88.8 Allergy status to other drugs, medicaments and biological substances; Z86.73 Personal history of transient ischemic attack (TIA), and cerebral infarction without residual deficits; Z79.02 Long term (current) use of antithrombotics/antiplatelets
CPT/HCPCS: 99284; J7030